=== PATIENT | male | born 1940 | race Caucasian/White ===

== ENCOUNTER → 2016-07-29 | Outpatient (REF) | payer MEDICARE, OTHER ==
[~2016-07-29] MED LIST: ADV250INH INH; ASPI325T PO; ASPI81TA85 PO; BENA10TA2 PO; CALCTAB43 PO; CETI10TA PO; FINA5TAB2 PO; FLOM5CAP PO; FURO20TA2 PO; LEVO125T3 PO; NASA1SPR; PRAV20TA2 PO; PROA1AER INH; TIOT18INH INH; VITA1CAP25 PO; VITA500T88 PO; VITMTA PO
== END ==
LOC: M SFHCPLAZ 08:22
PROVIDERS: ATTEND Family Medicine
DX: E03.9 Hypothyroidism, unspecified (principal); Z86.39 Personal history of other endocrine, nutritional and metabolic disease; I10 Essential (primary) hypertension; J44.9 Chronic obstructive pulmonary disease, unspecified; Z79.899 Other long term (current) drug therapy; Z79.82 Long term (current) use of aspirin; Z79.51 Long term (current) use of inhaled steroids; I25.10 Atherosclerotic heart disease of native coronary artery without angina pectoris; I50.32 Chronic diastolic (congestive) heart failure; E78.00 Pure hypercholesterolemia, unspecified; E83.42 Hypomagnesemia
CPT/HCPCS: 36415; 80053; 80061; 82306; 83735; 84443; 85027; G0463

== ENCOUNTER → 2016-07-29 | Outpatient (REF) | payer MEDICARE, OTHER ==
[2016-07-29 12:03] LABS: MEAN CORPUSCULAR HEMOGLOBIN 30.9 pg (27.0-33.0); MEAN CORPUSCULAR VOLUME 93.7 fl (80.0-96.0); RED CELL DISTRIBUTION WIDTH 12.7 % (11.5-14.5); WHITE BLOOD COUNT 6.1 K/mm3 (4.0-10.0)
[2016-07-29 12:24] LABS: ALBUMIN 3.6 GM/DL (3.2-5.2); ALBUMIN/GLOBULIN RATIO 1.09 (1.00-1.93); ALKALINE PHOSPHATASE 63 U/L (45-117); ALT/SGPT 20 U/L (12-78); ANION GAP 7 MEQ/L (8-16); AST/SGOT 13 U/L (15-37); BILIRUBIN,TOTAL 0.7 MG/DL (0.2-1.0); BLOOD UREA NITROGEN 19 MG/DL (7-18); CALCIUM LEVEL 8.7 MG/DL (8.8-10.2); CARBON DIOXIDE LEVEL 26 MEQ/L (21-32); CHLORIDE LEVEL 107 MEQ/L (98-107); CHOLESTEROL LEVEL 152 MG/DL (<200); CREATININE FOR GFR 1.07 MG/DL (0.70-1.30); GLOMERULAR FILTRATION RATE > 60.0 (>42); GLUCOSE, FASTING 102 MG/DL (83-110); MAGNESIUM LEVEL 2.4 MG/DL (1.8-2.4); POTASSIUM SERUM 4.6 MEQ/L (3.5-5.1); SODIUM LEVEL 140 MEQ/L (136-145); TOTAL PROTEIN 6.9 GM/DL (6.4-8.2); TRIGLYCERIDES LEVEL 122 MG/DL (<150)
== END ==
LOC: M LABDRAWP 11:32
PROVIDERS: ATTEND Physician Assistant
DX: I25.10 Atherosclerotic heart disease of native coronary artery without angina pectoris (principal); I50.32 Chronic diastolic (congestive) heart failure; E78.00 Pure hypercholesterolemia, unspecified; E83.42 Hypomagnesemia

== ENCOUNTER 2016-08-20 04:12 | Day surgery (SDC) | payer MEDICARE, BC, OTHER ==
[~2016-08-20] VITALS: Ht 170.2 cm; Wt 84.8 kg
[2016-08-20] MEDS ORDERED: LEVO125T3 PO (04:46)
[2016-08-20] MEDS ORDERED: FINA5TAB2 PO (04:46)
[2016-08-20] MEDS ORDERED: CETI10TA PO (04:46)
[2016-08-20] MEDS ORDERED: PRAV20TA2 PO (04:46)
[2016-08-20] MEDS ORDERED: FURO20TA2 PO (04:46)
[2016-08-20] MEDS ORDERED: TIOT18INH INH (04:46)
[2016-08-20] MEDS ORDERED: FLOM5CAP PO (04:46)
[2016-08-20] MEDS ORDERED: BENA10TA2 PO (04:46)
[2016-08-20] MEDS ORDERED: ADV250INH INH (04:46)
[2016-08-20] MEDS ORDERED: ASPI81TA85 PO (04:46)
[2016-08-20] MEDS ORDERED: NS 500 ML IV ONE (06:15)
[2016-08-20] MEDS ORDERED: ONDANSETRON 4MG/2ML VIAL (J2405) IV ONE (06:15)
[2016-08-20 06:16] LABS: BASO # 0.1 K/mm3 (0.0-0.2); EOS # 0.2 K/mm3 (0.0-0.50); LARGE UNSTAINED CELL # 0.1 K/mm3 (0.0-0.4); LARGE UNSTAINED CELL % 1.8 % (0.0-4.0); LYMPH # 1.1 K/mm3 (1.5-4.5); LYMPH % 14.9 % (24.0-44.0); MEAN CORPUSCULAR HEMOGLOBIN 30.6 pg (27.0-33.0); MEAN CORPUSCULAR VOLUME 95.8 fl (80.0-96.0); MONO # 0.3 K/mm3 (0.0-0.8); MONO % 4.2 % (0.0-5.0); NEUTROPHILS # 5.7 K/mm3 (1.8-7.7); NEUTROPHILS % 75.2 % (36.0-66.0); PLATELET COUNT, AUTOMATED 202 k/mm3 (150-450); RED CELL DISTRIBUTION WIDTH 12.8 % (11.5-14.5); WHITE BLOOD COUNT 7.6 K/mm3 (4.0-10.0)
[2016-08-20] MEDS: MORPHINE 2 MG/ML 1ML SYRINGE IV PRN ×4 (06:26→17:38)
[2016-08-20 06:30] LABS: ALBUMIN 3.5 GM/DL (3.2-5.2); ALBUMIN/GLOBULIN RATIO 1.03 (1.00-1.93); ALKALINE PHOSPHATASE 67 U/L (45-117); ALT/SGPT 21 U/L (12-78); AMYLASE 67 U/L (25-115); ANION GAP 7 MEQ/L (8-16); AST/SGOT 16 U/L (15-37); BILIRUBIN,DIRECT 0.1 MG/DL (0.0-0.2); BILIRUBIN,TOTAL 0.4 MG/DL (0.2-1.0); BLOOD UREA NITROGEN 19 MG/DL (7-18); CALCIUM LEVEL 8.5 MG/DL (8.8-10.2); CARBON DIOXIDE LEVEL 27 MEQ/L (21-32); CHLORIDE LEVEL 105 MEQ/L (98-107); CREATININE FOR GFR 1.22 MG/DL (0.70-1.30); GLOMERULAR FILTRATION RATE > 60.0 (>42); GLUCOSE, FASTING 138 MG/DL (83-110); POTASSIUM SERUM 4.7 MEQ/L (3.5-5.1); SODIUM LEVEL 139 MEQ/L (136-145); TOTAL PROTEIN 6.9 GM/DL (6.4-8.2)
[2016-08-20] MEDS ORDERED: ISOVUE-370 76% 100ML VIAL (Q9967) As Ordered ONE (06:36)
--- NOTE | 2016-08-20 07:50 | REPUSA ---
CLINICAL HISTORY: Abdominal pain. TECHNIQUE: Multiple axial, sagittal and coronal CT images were obtained through the abdomen and pelvi s after administration of oral and intravenous contrast material. COMMENTS: Significant food residue in the stomach. The liver is of uniform attenuation without mass or defect. There is no intra or extrahepatic biliary ductal dilatation. The spleen is normal. The gallbladder contains a gallstone impacted at its neck. Diffuse thickening and enhancement of the gallbladder with pericholecystic fat stranding. The pancrea s is of normal contour and attenuation characteristics. There is no evidence of adrenal mass. Both kidneys demonstrate prompt and equal nephrograms. The kidneys are normal in size, shape and conf iguration. There is no evidence of renal or ureteral mass. No renal or ureteral calculi are identifie d. There is no hydroureter or hydronephrosis. No evidence for appendicitis. There is no bowel wall thickening. No evidence for small or large bhaskar l obstruction. There is no evidence of abdominal ascites or lymphadenopathy. There is no evidence of intrinsic or extrinsic bladder mass. Diffusely thickened bladder. There is no pelvic ascites or lymphadenopathy. Moderate prostatomegaly. Small sliding hernia. Ectatic abdominal aorta. Images of the lung bases show no evidence of pleural or parenchymal mass. There are no pleural effusi ons. The bony structures are free of lytic or blastic lesions. Multilevel degenerative changes are seen in volving the thoracolumbar spine. Scattered calcifications are seen involving the aorta and major bran ches compatible with atherosclerosis. IMPRESSION: Acute calculus cholecystitis. No drainable abscess formation. Food residue in the stomach. Probably gastroparesis. Ectatic aorta. No associated aneurysm or dissection. Atherosclerosis. Uncomplicated clonic diverticulosis. Multifocal mild thickening of the sigmoid. Probably secondary to underdistention/spasm. Thank you for your kind referral of this patient.
--- NOTE | 2016-08-20 09:54 | REP ---
Preoperative evaluation. COMPARISON: 07/09/2014 FINDINGS: The superior mediastinal structures are midline. The cardiac silhouette is unremarkable in size, shape, and position. The diaphragmatic surfaces of the lungs are regular, and the costophrenic angles are clear. The pulmonary jarrell are clear. The imaged osseous structures are intact. IMPRESSION: There is no acute cardiopulmonary disease. No significant change. Signed by Giancarlo Joaquin DO 08/20/2016 10:20 A
[2016-08-20] MEDS ORDERED: ONDANSETRON 4MG/2ML VIAL (J2405) IV PRN ×2 (11:30→23:00)
[2016-08-20] MEDS ORDERED: VITA1CAP25 PO (11:48)
[2016-08-20] MEDS ORDERED: ASPI325T PO (11:48)
[2016-08-20] MEDS ORDERED: VITA500T88 PO (11:51)
[2016-08-20] MEDS ORDERED: NASA1SPR (11:51)
[2016-08-20] MEDS ORDERED: PROA1AER INH (11:51)
[2016-08-20] MEDS ORDERED: VITMTA PO (11:52)
[2016-08-20] MEDS ORDERED: CALCTAB43 PO (11:52)
[2016-08-20 12:21] LABS: INR 0.99
[2016-08-20] MEDS ORDERED: AMPICILLIN SOD/SULBACTAM SOD 3 GM in D5W MINI-BAG PLUS 100 ML IV SCH (13:00)
[2016-08-20] MEDS ORDERED: MORPHINE 2 MG/ML 1ML SYRINGE As Ordered ONE (14:19)
[2016-08-20 14:50] VITALS: BP 122/76
[2016-08-20] MEDS: LR 1,000 ML IV SCH (15:21)
[2016-08-20] MEDS ORDERED: NITROGLYCERIN 0.4 MG SUBL TABLET SL PRN (17:00)
[2016-08-20] MEDS: AMPICILLIN SOD/SULBACTAM SOD 3 GM in D5W MINI-BAG PLUS 100 ML IV SCH (17:39)
--- NOTE | 2016-08-20 17:40 | CR ---
DATE OF CONSULTATION: 08/20/2016 REFERRING PHYSICIAN: Dr. Adam Martinez REASON FOR CONSULTATION: 1. Abnormal troponin I. 2. Preoperative cardiac clearance prior to cholecystectomy. HISTORY OF PRESENT ILLNESS: Mr. Mauro Squires is a pleasant 76-year-old man with known coronary heart disease. He had an inferior wall myocardial infarct January 1998, for which he was treated with tPA. He subsequently underwent placement of four stents to the right coronary artery 02/09/1998. 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 He also has hypercholesterolemia. Treadmill stress SPECT myocardial perfusion imaging study April 2016 showed fair exercise tolerance with the patient completing 6 minutes, 30 seconds of the standard Ar protocol, stopping because of shortness of breath and leg fatigue. ECG was inconclusive due to baseline repolarization abnormalities. Stress myocardial perfusion was normal. Left ventricular (LV) regional wall motion and LV systolic function were normal. Echocardiogram Doppler 02/09/2015 reported normal LV size and wall thickness, normal LV systolic and diastolic function, and normal left atrial size. Presence of moderate aortic valve sclerosis without aortic stenosis. Trace aortic regurgitation. Mild mitral annular calcification with trace mitral regurgitation. Holter monitor 01/25/2016 reported predominantly sinus rhythm with sinus arrhythmia, heart rate 43-122 beats per minute (BPM) with an average heart rate of 75 BPM. Occasional premature atrial contractions (PACs) and occasional premature ventricular contractions (PVCs). Patient presented to hospital earlier today after awakening last night with severe pain over the upper abdomen, but most concentrated over the right upper quadrant. The pain did not change with light physical activity. There has been no pain, pressure, tightness, squeezing, or heaviness involving the chest, neck, jaw, or upper extremities with or without exertion. He experiences exertional dyspnea that has been stable with above ordinary physical activity, such as playing a light sport activity with grandchildren. No leg or ankle swelling. No presyncope or syncope. No palpitations. No embolic events. No intermittent claudication. ADVERSE DRUG REACTIONS: Intolerant of LIPITOR (myalgia). Intolerant of CRESTOR (myalgias). HOME MEDICATIONS: - ProAir HFA two puffs every 4 hours as needed - vitamin C 500 mg daily - aspirin 325 mg daily - benazepril 10 mg daily - calcium with vitamin D one daily - Zyrtec 10 mg at bedtime - vitamin D3 at 50,000 once a week on Fridays - finasteride 5 mg daily - furosemide 20 mg once daily - Synthroid 125 mcg daily - multivitamin one daily - Nasacort one spray each nostril at bedtime - pravastatin 20 mg at bedtime - Advair Diskus one puff twice a day - tamsulosin 0.4 mg daily - Spiriva one inhalation daily CURRENT MEDICATIONS IN HOSPITAL: - ampicillin 3 grams intravenous (IV) every 6 hours - Ringer's lactate 75 mL per hour IV - morphine 2 mg IV every 2 hours as needed - Zofran 4 mg IV every 6 hours as needed OTHER PAST MEDICAL AND SURGICAL HISTORY: 1. COPD. 2. Reactive airways disease. 3. Hypothyroidism. 4. Arthritis. 5. Glaucoma. 6. Cataracts. 7. Lupus. 8. Bilateral carpal tunnel. 9. Seasonal allergic rhinitis. 10. Benign prostatic hypertrophy. FAMILY HISTORY: Father of heart attack at age 58. Mother at age 71 from brain aneurysm. One brother with heart attack at age 60. SOCIAL HISTORY: Previous smoker. Quit in 1997. Prior to that had smoked two packs per day for 35 years. . Rare intake of alcohol. REVIEW OF SYSTEMS: Glaucoma, abdominal pain as described above, shortness of breath as described above, asthma, COPD, seasonal allergic rhinitis, arthritis, abdominal pain as above. No anxiety, panic attacks, or depression. All other 10-point review of systems negative. PHYSICAL EXAMINATION: A pleasant elderly man who appears his chronologic age, who is not in any respiratory or psychologic distress. Appears overweight. Height 67 inches, weight 84.8 kg, body mass index (BMI) 29.3. Temperature 97.2, pulse 71 (regular), respiratory rate 18, blood pressure (BP) 122/76, oxygen saturation 91% on room air. ECG 08/20/2016 at 6:15 a.m. shows sinus rhythm, 66 BPM, within normal limits. ECG 08/20/2016 at 3:35 p.m. shows sinus rhythm, 65 BPM, incomplete right bundle branch block (BBB). No pathologic Q waves. No ischemic repolarization abnormalities. Posterior-anterior (PA)/lateral chest x-ray 08/20/2016: Reported no acute cardiopulmonary disease. No significant change. Cardiac silhouette unremarkable in size, shape, and position. Lung jarrell clear. CT abdomen/pelvic with IV contrast reported acute calculous cholecystitis. Probable gastroparesis. Ectatic aorta. No aortic aneurysm or dissection. Atherosclerosis. Uncomplicated chronic diverticulosis. Multifocal mild thickening of the sigmoid. Laboratory work 08/20/2016 showed WBC 7.6, hemoglobin 14.2, hematocrit 44.6, platelets 202. PT/INR 0.99, PTT 28.6. BNP 22.3. Sodium 139, potassium 4.7, chloride 105, CO2 of 27, BUN 19, creatinine 1.22, estimated GFR greater than 60, glucose 138, calcium 8.5. Total bilirubin normal, direct bilirubin normal, AST normal, ALT normal, alkaline phosphatase normal. First CPK 211, repeat CPK 165. First CPK-MB 2.8, second CPK-MB 2.5. First troponin I of 0.17, repeat troponin I of 0.15. Protein 6.7, albumin 3.5. Amylase normal, lipase normal. ASSESSMENT AND RECOMMENDATIONS: 1. Coronary artery disease (CAD) without angina. History of inferior wall myocardial infarct January 1998, for which he received tPA. Status post coronary stenting times four to the right coronary artery 02/09/1998. Patient is angina free. Treadmill cardiac nuclear stress test April 2016 showed normal exercise stress myocardial perfusion and normal left ventricular (LV) systolic function and LV wall motion. ECG does not show any pathologic Q waves or ischemic repolarization abnormalities. It is difficult to be certain why this patient has a very slight indeterminate troponin I value; however, he is not in heart failure, and in my opinion he is not having any acute myocardial infarction. Recommend restarting aspirin following cholecystectomy. I will add nitroglycerine sublingual as needed. Continue pravastatin. Restart benazepril postoperatively. 2. Abnormal troponin I. I do not think this patient is having an acute myocardial infarction. He is not in heart failure. I do not have a good explanation for the slight indeterminate rate troponin I. I would not pursue cardiac catheterization or cancel his cholecystectomy surgery on the basis of these troponin I values. 3. Preoperative cardiac clearance for cholecystectomy. Cholecystectomy is generally consider an intermediate risk procedure from a cardiac point viewpoint, defined as 1-5% risk of nonfatal acute myocardial infarction or cardiac mortality. [place] [employer] [employer] clinical predictors are as follows. Major predictors: None. Intermittent clinical predictors: Old myocardial infarct. Minor clinical predictors: None. Intermittent clinical predictor: Compensated heart failure. At this point, I consider this patient cleared from the cardiac viewpoint to be able to proceed to the operating room for cholecystectomy. I have explained this by telephone to Dr. Adam Martinez. 4. Chronic diastolic heart failure. Compensated on examination. Normal brain natriuretic peptide (BNP). Restart furosemide postoperatively. Restart angiotensin-converting enzyme (MARIA ALEJANDRA) inhibitor postoperatively. 5. Hypertensive heart disease with congestive heart failure (CHF). As per diastolic heart failure category above. Blood pressure presently controlled. 6. Systemic hypertension. Blood pressure presently controlled. Recommend restarting furosemide and benazepril postoperatively . 7. 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 As per CAD category above. 8. Status post coronary stents to the right coronary artery. As per CAD category above. 9. Hypercholesterolemia. Recommend a Dietary Approaches to Stop Hypertension (DASH) diet when patient is able to get back to eating postoperatively. Recommend postoperatively when patient is able to eat again, to restart pravastatin. Thank you for referring Mr. Mauro Squires.
[2016-08-20] MEDS ORDERED: BUPIVACAINE HCL 0.25% 30 ML VIAL As Ordered ONE (20:56)
[2016-08-20] MEDS: ADVAIR DISKUS 250/50 INH PWD INH SCH (21:00)
[2016-08-20] MEDS ORDERED: fentaNYL 250 MCG/5 ML INJECTION (J3010) As Ordered ONE (21:12)
[2016-08-20] MEDS ORDERED: ROCURONIUM BROMIDE 50 MG/5 ML VIAL As Ordered ONE (21:12)
[2016-08-20] MEDS ORDERED: PROPOFOL 200 MG/20 ML VIAL As Ordered ONE (21:12)
[2016-08-20] MEDS ORDERED: LIDOCAINE 2% INJ 100 MG/5 ML SDV (FOR ANES.) As Ordered ONE (21:12)
[2016-08-20] MEDS ORDERED: SUCCINYLCHOLINE 100 MG/5 ML SYRINGE (J0330) As Ordered ONE (21:12)
[2016-08-20] MEDS ORDERED: MIDAZOLAM INJ 2 MG/2 ML VIAL (J2250) As Ordered ONE (21:12)
[2016-08-20] MEDS ORDERED: NEOSTIGMINE 1MG/ML 5 ML SYRINGE (J2710) As Ordered ONE (21:32)
[2016-08-20] MEDS ORDERED: ONDANSETRON 4MG/2ML VIAL (J2405) As Ordered ONE (21:32)
[2016-08-20] MEDS ORDERED: GLYCOPYRROLATE INJ 0.2 MG/ML 2 ML VIAL As Ordered ONE (21:32)
[2016-08-20] MEDS ORDERED: LR 1,000 ML IV SCH (23:00)
[2016-08-20] MEDS ORDERED: PERCOCET 5MG/325MG TAB PO PRN (23:00)
[2016-08-20] MEDS ORDERED: fentaNYL 100 MCG/2 ML INJECTION (J3010) IV PRN (23:00)
[2016-08-20 23:15] VITALS: BP 147/70
[2016-08-20] MEDS ORDERED: ACETAMINOPHEN TAB 650MG DOSE (2X325MG) PO PRN (23:15)
[2016-08-20] MEDS ORDERED: NORCO, ANEXSIA 5/325MG TABLET (HYDROcodone/ACETAMINOPHEN) PO PRN (23:15)
[2016-08-20 23:45] VITALS: BP 137/65
[2016-08-21] VITALS (7 sets, daily range): BP systolic 118–137; BP diastolic 56–68
[2016-08-21] MEDS: AMPICILLIN SOD/SULBACTAM SOD 3 GM in D5W MINI-BAG PLUS 100 ML IV SCH ×4 (00:03→16:53)
[2016-08-21] MEDS: LR 1,000 ML IV SCH (00:38)
[2016-08-21] MEDS: MORPHINE 2 MG/ML 1ML SYRINGE IV PRN (05:48)
[2016-08-21] MEDS ORDERED: LEVOTHYROXINE 0.125 MG TAB (125 MCG) PO SCH (06:00)
[2016-08-21] MEDS ORDERED: TIOTROPIUM INHALER/CAPSULE (SPIRIVA) INH SCH (08:00)
[2016-08-21] MEDS: ADVAIR DISKUS 250/50 INH PWD INH SCH (08:19)
[2016-08-21] MEDS ORDERED: TAMSULOSIN 0.4 MG CAP PO SCH (09:00)
[2016-08-21] MEDS ORDERED: FINASTERIDE 5 MG TAB PO SCH (09:00)
[2016-08-21] MEDS ORDERED: FUROSEMIDE 20 MG TAB PO SCH (09:00)
[2016-08-21] MEDS ORDERED: BENAZEPRIL 5 MG TAB PO SCH (09:00)
--- NOTE | 2016-08-21 09:21 | ECGEPIP ---
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
--- NOTE | 2016-08-21 15:57 | ECGEPIP ---
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
--- NOTE | 2016-08-21 16:00 | ECGEPIP ---
Stationary ECG Study 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
--- NOTE | 2016-08-21 21:31 | HPE ---
DATE OF ADMISSION: 08/20/2016 ADMITTING DIAGNOSIS: Acute cholecystitis. HISTORY OF PRESENT ILLNESS: The patient is a very pleasant 76-year-old man who presented to the emergency department at approximately 4 o'clock in the morning of August 20. He reports that he had retired for the evening at approximately 10:30 on the . He was awakened at 12:30 with severe epigastric pain. He developed some nausea. He tried drinking a cup of hot coffee, thinking this might settle his stomach, but it did not. He developed some dry heaves and had persistent severe epigastric pain and pain across his upper abdomen. He tolerated this for several hours at home and then contacted family, who brought him to the emergency department at about 4 o'clock. In the emergency department he was evaluated with some blood work. He had a chest x-ray and then had a CT scan of the abdomen and pelvis. The CT scan was interpreted by radiology as showing gallbladder wall thickening with pericholecystic inflammation and a stone in the neck of the gallbladder. I was consulted. The patient now approximately 10 hours out from onset of his pain has persistent pain and is tender in the right subcostal area, consistent with acute cholecystitis. The patient is now being placed on same-day surgery status for a laparoscopic cholecystectomy for management of his acute cholecystitis. MEDICATIONS: The patient's medications include: - Advair Diskus 250/50 mcg dosing, one puff inhaled twice daily - aspirin 325 mg by mouth daily - benazepril 10 mg by mouth daily - pravastatin 20 mg by mouth daily - cetirizine 10 mg by mouth daily - finasteride 5 mg by mouth daily - tamsulosin 0.4 mg by mouth daily - levothyroxine 125 mcg by mouth daily - furosemide 20 mg by mouth daily - Spiriva inhaler one inhalation daily. ALLERGIES: None known. SURGICAL HISTORY: Significant for a left inguinal hernia repair in the distant past. He has had a left total knee arthroplasty. The patient had coronary stents placed in 1997. He had an epididymectomy for some form of epididymitis. He has undergone colonoscopy, most recently 2 years ago. MEDICAL HISTORY: Significant for: 1. An myocardial infarction (NH) back in about 1997. He apparently was observed for a day or two in the hospital, which revealed some changes which led to a transfer to [place] for his coronary arteriography and stenting. The patient reports his most recent followup stress test was in the fall of 2016, and he did well. He denies any history of arrhythmia or significant heart failure. 2. He has a history of some chronic obstructive pulmonary disease associated with a prior history of smoking. He stopped smoking at the time of his cardiac event back in 1997. 3. He has a history of benign prostatic hyperplasia. 4. His cholesterol has been elevated in the past. 5. He is on some Synthroid for hypothyroidism. SOCIAL HISTORY: The patient is a . He remains quite active physically. He had planned to fly to [place] on August 21 to watch his granddaughter play softball during spring. He has an attentive [id number] with him today and has other family members who are normally available to assist. FAMILY HISTORY: Not contributory. REVIEW OF SYSTEMS: The patient denies any history of severe headaches, stroke, or seizure. He has no chest pain or palpitations. He denies any significant shortness of breath, wheezing, or cough. He denies any history of obstructive sleep apnea. He has not had any pains similar to what he is having today previously. He denies any history of jaundice, hepatitis, or pancreatitis. He has had no melena or hematochezia. He has known diverticulosis but has not had any recent problems and reports that his colonoscopy 2 years ago was fine. He denies any history of deep vein thrombosis (DVT) or pulmonary embolus. PHYSICAL EXAMINATION: Reveals a pleasant, somewhat obese older man lying quietly on the emergency room (ER) stretcher. He is alert, oriented, and cooperative. Sclerae are anicteric. The skin is warm and dry. Mucous membranes are moist. His most recent vital signs show a temperature of 97.8 degrees with a pulse of 69 and a blood pressure of 132/64 with an oxygen saturation of 92. His neck is supple. There is no mass. He has no bruit. Heart exam shows a regular rate and rhythm. The lungs are clear to auscultation bilaterally, though the breath sounds may be somewhat distant. The abdomen is mildly obese. He has bowel sounds present. He has an old scar low in the left lower quadrant. There is some mild tenderness to percussion in the epigastrium and right upper quadrant. On palpation he has moderate direct tenderness in the right subcostal area at about the midclavicular line. The abdomen is otherwise soft and without appreciable mass. Extremities show no peripheral edema, and he has palpable radial and dorsalis pedis pulses. His laboratory studies include a CBC showing a white count of 7.6 with a hemoglobin of 14, hematocrit of 45 and a platelet count of 202,000. Differential count shows 75% neutrophils with 15% lymphocytes. A chemistry profile shows a sodium of 139, potassium 4.7, chloride 105, CO2 of 27, BUN of 19, creatinine 1.22, and glucose of 138. Liver function tests are normal. His total bilirubin is 0.4. Total protein is 6.9 with an albumin of 3.5. Amylase is only 67, and his lipase is 98. A urinalysis showed a specific gravity of 1.040 with a pH of 6.0, and there was only 1 white cell and 3 red cells noted per high-power field but no bacteria seen. He had a cardiac injury profile showing a CK of 211, CK-MB of only 2.8. A troponin was 0.17, which is above the normal lower reference range. The CT scan images were reviewed. He has some significant degenerative changes of the spine. He has some significant atherosclerotic changes identified in the great vessels. There does appear to be some thickening in the wall of the gallbladder fairly diffusely. There does appear to be a small calcific density in the area of the gallbladder neck or proximal cystic duct. There is no free air. Chest x-ray showed no acute abnormality. The lungs do appear to be somewhat hyperinflated. IMPRESSION: 1. Acute cholecystitis. 2. Atherosclerotic coronary artery disease status post stenting with no recent symptoms and a good stress test outcome in the fall of 2016. 3. Chronic obstructive pulmonary disease. 4. Hypothyroidism. 5. Hyperlipidemia. 6. Benign prostatic hyperplasia. PLAN: I discussed with the patient the treatment of his acute cholecystitis. I have recommended that we administer antibiotics and proceed with a laparoscopic cholecystectomy today. I see no benefit in delaying the treatment. He had an opportunity to ask questions. I counseled him regarding the nature of a laparoscopic cholecystectomy and to include the risks and possible benefits. Risks include, but are not limited to, bleeding, infection, scarring, adverse drug reaction, need for further surgery, injury of internal organ, bile leak, and hernia. The patient desires to proceed as I have outlined this. I will keep him nothing by mouth for now and on some maintenance intravenous (IV) fluid. He will receive a dose of Unisom 3 grams IV, and we will proceed with surgery whenever the operating room can provide support. COURTD
--- NOTE | 2016-08-22 13:09 | RO ---
DATE OF PROCEDURE: 08/20/2016 PREOPERATIVE DIAGNOSIS: Acute cholecystitis. POSTOPERATIVE DIAGNOSIS: Acute cholecystitis. PROCEDURE PERFORMED: Laparoscopic cholecystectomy. SURGEON: Dr. Martinez WINE PASTEURIZER: ANESTHESIA: General. INDICATIONS FOR PROCEDURE: The patient is a 76-year-old man who presented to the emergency department with severe epigastric pain. He underwent evaluation with a CT scan that showed a thickened gallbladder wall with a suggestion of a stone in the gallbladder neck or proximal cystic duct. His clinical picture was consistent with acute cholecystitis and he is now for a laparoscopic cholecystectomy. OPERATIVE PROCEDURE: The patient was placed under general endotracheal anesthesia. The patient's abdomen was prepped and draped in a sterile fashion. 0.25% Marcaine was infiltrated at the trocar sites. A short supraumbilical midline incision was made. This was deepened through the fascia and peritoneum sharply. A Luly cannula was inserted and the abdomen was insufflated with carbon dioxide gas. The patient was tilted to a slight reverse Trendelenburg position. The laparoscope was inserted. There was abundant omental fat extending up over the right side of the liver. Two 5 mm trocars were placed in the right upper quadrant. Because of some adhesions in the left upper quadrant just to the left of his falciform ligament, which bound some omentum into this area, I elected to put the third 5 mm trocar just to the right of the falciform ligament in the epigastrium. With graspers, the omentum was pulled down off of the right lobe of the liver. The gallbladder was exposed. The patient was rotated slightly to the left to enhance exposure. The gallbladder was found to be markedly edematous. The gallbladder was grasped, but was distended making manipulation difficult so the gallbladder was aspirated of some dark bile. The gallbladder was elevated. Dissection was begun in the region of the gallbladder neck. The peritoneum was opened with the hook cautery and dissection proceeded through the markedly edematous tissue. The cystic duct was dissected free and well exposed. I attempted to clip this with the Ligamax but the wall was thickened to a point where the clips would not extend across the full width of the cystic duct. Therefore, these clips were removed. Further dissection identified the cholecystic artery and this was doubly clipped with hemoclips and divided. The cystic duct was clipped near the gallbladder neck and the cystic duct was then divided with scissors. The stump of the cystic duct was then occluded with a #0 Vicryl Endoloop. A small amount of bile spillage was irrigated until clear. Dissection then proceeded to remove the gallbladder from the gallbladder bed using the hook cautery. Because of the marked edema, the dissection was somewhat slowed. Gallbladder was perforated in the course of dissection and there was some bile spillage into the subhepatic space. The gallbladder was placed in an Endopouch. The right upper quadrant was then copiously irrigated with saline. A few small bleeding points along the gallbladder bed were controlled with cautery. Final inspection revealed no evidence of bleeding or bile leak. The patient was returned to a flat position. The abdomen was deflated and the trocars were all removed. The gallbladder was recovered through the Luly site and sent for permanent pathology. The fascia was closed with interrupted simple sutures of #2-0 Vicryl. The skin incisions were all closed with buried #5-0 Vicryl and Steri-Strips. The patient tolerated the procedure well without apparent complication. He was awakened in the operating room, extubated and moved to the recovery room in stable condition. JOYCELYN
== END 2016-08-21 19:40 | disposition home or self-care (01) ==
LOC: M ED 05:17 → M SDC 11:18 → M MS5PR 14:39 → M SDC 08-21 19:40
PROVIDERS: ATTEND Surgery
DX: K81.0 Acute cholecystitis (principal); I10 Essential (primary) hypertension; I25.10 Atherosclerotic heart disease of native coronary artery without angina pectoris; I50.32 Chronic diastolic (congestive) heart failure; R06.09 Other forms of dyspnea; J44.9 Chronic obstructive pulmonary disease, unspecified; R06.83 Snoring; E03.9 Hypothyroidism, unspecified; E78.5 Hyperlipidemia, unspecified; N40.0 Benign prostatic hyperplasia without lower urinary tract symptoms; K57.30 Diverticulosis of large intestine without perforation or abscess without bleeding; I25.2 Old myocardial infarction; Z79.899 Other long term (current) drug therapy; Z79.82 Long term (current) use of aspirin; Z96.652 Presence of left artificial knee joint
CPT/HCPCS: 36415; 47562; 71020; 74177; 80048; 80076; 81001; 82150; 82550; 82553; 83690; 83880; 84484; 85025; 85610; 85730; 88304; 93005; 93041; 94664; 96374; 96375; 96376; 99285; J0330; J2250; J2405; J2710; J3010; Q9967

== ENCOUNTER → 2016-11-04 | Outpatient (REF) | payer MEDICARE, OTHER ==
[~2016-11-04] MED LIST changes: -BENA10TA2 PO; +BENA10TA6 PO; -CALCTAB43 PO; +CALCTAB74 PO; -LEVO125T3 PO; +LEVO125T4 PO; -PROA1AER INH; +PROAAER10 INH
== END ==
LOC: M SFHCPLAZ 08:59
PROVIDERS: ATTEND Family Medicine
DX: E55.9 Vitamin D deficiency, unspecified (principal)

== ENCOUNTER → 2017-01-20 | Outpatient (REF) | payer MEDICARE, OTHER ==
[2017-01-20 13:03] LABS: ALBUMIN 3.5 GM/DL (3.2-5.2); ALBUMIN/GLOBULIN RATIO 0.97 (1.00-1.93); ALKALINE PHOSPHATASE 69 U/L (45-117); ALT/SGPT 20 U/L (12-78); ANION GAP 8 MEQ/L (8-16); AST/SGOT 14 U/L (15-37); BILIRUBIN,TOTAL 0.6 MG/DL (0.2-1.0); BLOOD UREA NITROGEN 22 MG/DL (7-18); CARBON DIOXIDE LEVEL 29 MEQ/L (21-32); CHLORIDE LEVEL 107 MEQ/L (98-107); CREATININE FOR GFR 1.03 MG/DL (0.70-1.30); GLOMERULAR FILTRATION RATE > 60.0 (>42); GLUCOSE, FASTING 100 MG/DL (83-110); POTASSIUM SERUM 4.7 MEQ/L (3.5-5.1); SODIUM LEVEL 144 MEQ/L (136-145); TOTAL PROTEIN 7.1 GM/DL (6.4-8.2)
== END ==
LOC: M LABDRAW1 11:40
PROVIDERS: ATTEND Physician Assistant
DX: I25.10 Atherosclerotic heart disease of native coronary artery without angina pectoris (principal); I50.32 Chronic diastolic (congestive) heart failure; E78.00 Pure hypercholesterolemia, unspecified

== ENCOUNTER 2017-04-17 22:42 | Emergency (ER) | payer MEDICARE, OTHER ==
[~2017-04-17] VITALS: Ht 170.2 cm; Wt 83.6 kg
[2017-04-17 22:42] VITALS: BP 123/79
[2017-04-18] MEDS ORDERED: MORPHINE 10 MG/ML 1ML VIAL IM ONE (01:00)
[2017-04-18] MEDS ORDERED: predniSONE 20 MG TAB PO ONE (01:00)
[2017-04-18] MEDS ORDERED: diazePAM 2 MG TAB PO ONE (01:00)
[2017-04-18] MEDS ORDERED: PRED20TA PO (01:03)
[2017-04-18] MEDS ORDERED: NORCOTAB PO (01:03)
[2017-04-18] MEDS ORDERED: VALI2TAB PO (01:03)
[2017-04-18] MEDS ORDERED: NORCO 5/325MG TABLET (BULK FOR ED) PO ONE (01:15)
== END 2017-04-18 01:30 | disposition home or self-care (01) ==
LOC: M ED 22:42
DX: M54.41 Lumbago with sciatica, right side (principal); I50.9 Heart failure, unspecified; Z79.899 Other long term (current) drug therapy; Z79.82 Long term (current) use of aspirin; Z79.51 Long term (current) use of inhaled steroids

== ENCOUNTER → 2017-04-28 | Outpatient (CLI) | payer MEDICARE, BC, OTHER ==
[~2017-04-28] MED LIST changes: +NORCOTAB PO; +PRED20TA PO; +VALI2TAB PO
--- NOTE | 2017-04-28 09:28 | REP ---
ULTRASOUND ABDOMINAL AORTA: Real-time sonographic evaluation of the abdominal aorta are performed. There is no sonographic evidence of abdominal aortic aneurysm. Maximum AP diameter of the abdominal aorta at the level of the diaphragms is 2.8 cm, at the level of the renal artery is 2.0 cm, mid aspect 2.3 cm and distally 2.4 cm. The common iliac arteries are normal caliber, right measuring 1.1 cm and left 1.2 cm. Mild atherosclerotic plaquing is seen. IMPRESSION: Mild ectasia distal abdominal aorta without aneurysm. Signed by Hasmukh Dejesus MD 04/28/2017 11:52 A
== END ==
LOC: M RAD 08:13
PROVIDERS: ATTEND Family Medicine
DX: R94.31 Abnormal electrocardiogram [ECG] [EKG] (principal)

== ENCOUNTER → 2017-07-17 | Outpatient (REF) | payer MEDICARE, BC, OTHER ==
[2017-07-17 12:13] LABS: HEMATOCRIT 41.8 % (42.0-52.0); HEMOGLOBIN 13.7 g/dl (14.0-18.0); MEAN CORPUSCULAR HEMOGLOBIN 31.3 pg (27.0-33.0); MEAN CORPUSCULAR HGB CONC 32.8 g/dl (32.0-36.5); MEAN CORPUSCULAR VOLUME 95.4 fl (80.0-96.0); PLATELET COUNT, AUTOMATED 214 10^3/uL (150-450); RED BLOOD COUNT 4.38 10^6/uL (4.30-6.10); RED CELL DISTRIBUTION WIDTH 13.1 % (11.5-14.5)
[2017-07-17 12:48] LABS: ALBUMIN 3.4 GM/DL (3.2-5.2); ALKALINE PHOSPHATASE 59 U/L (45-117); ALT/SGPT 16 U/L (12-78); ANION GAP 5 MEQ/L (8-16); AST/SGOT 12 U/L (7-37); BILIRUBIN,TOTAL 0.7 MG/DL (0.2-1.0); BLOOD UREA NITROGEN 21 MG/DL (7-18); CALCIUM LEVEL 8.7 MG/DL (8.8-10.2); CARBON DIOXIDE LEVEL 30 MEQ/L (21-32); CHLORIDE LEVEL 108 MEQ/L (98-107); CHOLESTEROL LEVEL 132 MG/DL (<200); CHOLESTEROL RISK RATIO 2.869 (<5); CREATININE FOR GFR 1.01 MG/DL (0.70-1.30); GLOMERULAR FILTRATION RATE > 60.0 (>42); GLUCOSE, FASTING 105 MG/DL (70-100); HDL CHOLESTEROL 46 MG/DL (>40); NON-HDL-C 86 MG/DL; POTASSIUM SERUM 4.7 MEQ/L (3.5-5.1); SODIUM LEVEL 143 MEQ/L (136-145); TOTAL PROTEIN 6.5 GM/DL (6.4-8.2); TRIGLYCERIDES LEVEL 105 MG/DL (<150)
== END ==
LOC: M LABDRAW1 08:31
DX: I25.10 Atherosclerotic heart disease of native coronary artery without angina pectoris (principal); I50.32 Chronic diastolic (congestive) heart failure; E78.00 Pure hypercholesterolemia, unspecified

== ENCOUNTER → 2017-07-17 | Outpatient (REF) | payer MEDICARE, BC, OTHER ==
[2017-07-17 13:02] LABS: TOTAL 25(OH) VITAMIN D 27.5 NG/ML (30.0-100.0)
[2017-07-17 13:08] LABS: ANION GAP 6 MEQ/L (8-16); BLOOD UREA NITROGEN 22 MG/DL (7-18); CALCIUM LEVEL 8.9 MG/DL (8.8-10.2); CARBON DIOXIDE LEVEL 30 MEQ/L (21-32); CHLORIDE LEVEL 108 MEQ/L (98-107); CHOLESTEROL LEVEL 146 MG/DL (<200); CHOLESTEROL RISK RATIO 2.862 (<5); CREATININE FOR GFR 1.05 MG/DL (0.70-1.30); GLOMERULAR FILTRATION RATE > 60.0 (>42); GLUCOSE, FASTING 102 MG/DL (70-100); HDL CHOLESTEROL 51 MG/DL (>40); LDL CHOLESTEROL 73.2 MG/DL (<100); NON-HDL-C 95 MG/DL; POTASSIUM SERUM 4.7 MEQ/L (3.5-5.1); PSA SCREENING 0.22 NG/ML (< 4.0); SODIUM LEVEL 144 MEQ/L (136-145); TRIGLYCERIDES LEVEL 109 MG/DL (<150)
== END ==
LOC: M LABDRAW1 08:29
DX: I25.10 Atherosclerotic heart disease of native coronary artery without angina pectoris (principal); Z12.5 Encounter for screening for malignant neoplasm of prostate; E55.9 Vitamin D deficiency, unspecified; I50.32 Chronic diastolic (congestive) heart failure; E78.00 Pure hypercholesterolemia, unspecified
CPT/HCPCS: 80053

== ENCOUNTER → 2017-07-26 | Outpatient (REF) | payer MEDICARE, OTHER ==
[2017-07-26 16:25] LABS: MAGNESIUM LEVEL 2.2 MG/DL (1.8-2.4)
== END ==
LOC: M LABDRAW1 14:27
DX: R00.2 Palpitations (principal)
CPT/HCPCS: 83735

== ENCOUNTER → 2018-01-19 | Outpatient (REF) | payer MEDICARE, OTHER ==
[2018-01-19 15:54] LABS: ALBUMIN 3.5 GM/DL (3.2-5.2); ANION GAP 8 MEQ/L (8-16); BLOOD UREA NITROGEN 21 MG/DL (7-18); CALCIUM LEVEL 8.4 MG/DL (8.8-10.2); CARBON DIOXIDE LEVEL 25 MEQ/L (21-32); CHLORIDE LEVEL 107 MEQ/L (98-107); CREATININE FOR GFR 1.19 MG/DL (0.70-1.30); GLOMERULAR FILTRATION RATE > 60.0 (>42); GLUCOSE, FASTING 133 MG/DL (70-100); PHOSPHORUS LEVEL 2.9 MG/DL (2.5-4.9); POTASSIUM SERUM 4.2 MEQ/L (3.5-5.1); SODIUM LEVEL 140 MEQ/L (136-145)
== END ==
LOC: M LABDRAW1 11:08
DX: I50.32 Chronic diastolic (congestive) heart failure (principal)
CPT/HCPCS: 80069

== ENCOUNTER → 2018-01-26 | Outpatient (CLI) | payer MEDICARE, BC, OTHER | LOC: M RAD 10:19 | DX: R10.31 Right lower quadrant pain (principal) | CPT/HCPCS: 76705 ==

== ENCOUNTER → 2018-01-31 | Outpatient (REF) | payer MEDICARE, OTHER ==
[2018-01-31 12:17] LABS: BASO # 0.1 10^3/uL (0.0-0.2); BASO % 0.7 % (0.0-1.0); EOS # 0.3 10^3/uL (0.0-0.50); EOS % 4.8 % (0.0-3.0); HEMATOCRIT 40.3 % (42.0-52.0); HEMOGLOBIN 13.7 g/dl (13.5-17.5); IMMATURE GRANULOCYTE % 0.3 % (0-3.0); LYMPH # 2.3 10^3/uL (1.5-4.5); LYMPH % 33.2 % (24.0-44.0); MEAN CORPUSCULAR HEMOGLOBIN 31.8 pg (27.0-33.0); MEAN CORPUSCULAR VOLUME 93.5 fl (80.0-96.0); MONO # 0.6 10^3/uL (0.0-0.8); MONO % 9.3 % (0.0-5.0); NEUTROPHILS # 3.5 10^3/uL (1.8-7.7); NEUTROPHILS % 51.7 % (36.0-66.0); PLATELET COUNT, AUTOMATED 214 10^3/uL (150-450); RED BLOOD COUNT 4.31 10^6/uL (4.30-6.10); RED CELL DISTRIBUTION WIDTH 12.6 % (11.5-14.5); WHITE BLOOD COUNT 6.8 10^3/uL (4.0-10.0)
[2018-01-31 13:05] LABS: FREE T4 1.15 NG/DL (0.76-1.46)
[2018-01-31 15:38] LABS: ESTIMATED AVERAGE GLUCOSE 117 MG/DL (60-110); HEMOGLOBIN A1c 5.7 %
== END ==
LOC: M LABDRAW1 11:08
DX: E03.9 Hypothyroidism, unspecified (principal); I48.0 Paroxysmal atrial fibrillation; D64.9 Anemia, unspecified; Z12.5 Encounter for screening for malignant neoplasm of prostate
CPT/HCPCS: 84443

== ENCOUNTER → 2018-04-19 | Outpatient (CLI) | payer MEDICARE, OTHER | LOC: M WUC 08:35 | DX: J44.1 Chronic obstructive pulmonary disease with (acute) exacerbation (principal) | CPT/HCPCS: 71046 ==

== ENCOUNTER → 2018-05-03 | Outpatient (CLI) | payer MEDICARE, BC, OTHER ==
[~2018-05-03] MED LIST changes: +E-Z-GAS II EFFERVESCENT PACKET (SODIUM BICARB./CITRIC ACID/SIMETHICONE) As Ordered ONE; +E-Z-HD 98% w/w 340GM SUSP BTL As Ordered ONE; +E-Z-PAQUE 96% w/w SUSP 176GM BTL As Ordered ONE; +FLOM0.4C39 PO; -FLOM5CAP PO
--- NOTE | 2018-05-08 11:34 | REP ---
Clinical: dysphagia. Technique: Single contrast and double contrast technique using barium sulfate substrates. Findings: Organ Recovery Coordinator film of the abdomen demonstrates degenerative changes to the lumbosacral spine and pelvis/hips. Normal nonspecific bowel gas pattern noted. Organ Recovery Coordinator film of the chest demonstrates left lower lobe infiltrate which warrants followup. Normal motility through the oropharynx and hypopharynx is appreciated without obvious mass/mass effect or contour abnormality. The esophagus demonstrates irregular peristalsis and tertiary waves without evidence for ulcerations, polyps, intrinsic or extrinsic mass lesion. Total fluoroscopic time: 2.2 minutes . Impression: 1. Normal oral phase of examination. 2. Dysmotility and tertiary waves through the esophagus which may be related to the patient's dysphagia. 3. Organ Recovery Coordinator film of the chest demonstrates left lower lobe infiltrate requiring follow-up and correlation. Electronically Signed by Ignacio Mantilla MD 05/08/2018 11:25 A
== END ==
LOC: M RAD 09:36
PROVIDERS: ATTEND Physician Assistant
DX: R13.10 Dysphagia, unspecified (principal); R91.8 Other nonspecific abnormal finding of lung field

== ENCOUNTER → 2018-06-18 | Outpatient (CLI) | payer MEDICARE, BC, OTHER ==
[~2018-06-18] MED LIST changes: -E-Z-GAS II EFFERVESCENT PACKET (SODIUM BICARB./CITRIC ACID/SIMETHICONE) As Ordered ONE; -E-Z-HD 98% w/w 340GM SUSP BTL As Ordered ONE; -E-Z-PAQUE 96% w/w SUSP 176GM BTL As Ordered ONE
--- NOTE | 2018-06-18 11:56 | REP ---
PA and lateral chest: Comparison is 04/19/2018. The lung jarrell are clear. There are no focal infiltrates or effusions. No lung nodules are identified. Cardiac size is normal. The roderick, mediastinum, and skeletal structures are unremarkable. There is no interval change. Impression: Negative PA and lateral chest. No evidence of pneumonia. No interval change. Electronically Signed by Hasmukh Alonso MD 06/18/2018 11:47 A
== END ==
LOC: M RAD 09:49
PROVIDERS: ATTEND Physician Assistant
DX: J18.1 Lobar pneumonia, unspecified organism (principal)

== ENCOUNTER 2018-07-20 11:40 | Day surgery (SDC) | payer MEDICARE, BC, OTHER ==
[~2018-07-20] VITALS: Ht 170.2 cm; Wt 83.9 kg
[~2018-07-20 11:40] MED LIST changes: +NS 1,000 ML IV ONE
[2018-07-20] MEDS ORDERED: PROPOFOL 200 MG/20 ML VIAL As Ordered ONE (13:34)
[2018-07-20] MEDS ORDERED: LIDOCAINE 2% INJ 100 MG/5 ML SDV (FOR ANES.) As Ordered ONE (13:34)
--- NOTE | 2018-07-20 13:57 | ROOR ---
Patient Name: Mauro Squires Procedure Date: 07/20/2018 1:34 PM Date of : 1940 Age: 78 Room: [facility] Gender: Male Note Status: Finalized Procedure: Upper GI endoscopy Indications: Dysphagia Providers: Master BOYD MD Referring MD: Derick Calloway MD Requesting Provider: Medicines: Monitored Anesthesia Care Complications: No immediate complications. Procedure: Pre-Anesthesia Assessment: - The heart rate, respiratory rate, oxygen saturations, blood pressure, adequacy of pulmonary ventilation, and response to care were monitored throughout the procedure. The Endoscope was introduced through the mouth, and advanced to the second part of duodenum. The upper GI endoscopy was accomplished without difficulty. The patient tolerated the procedure well. Findings: Abnormal motility was noted in the middle third of the esophagus and in the lower third of the esophagus. The cricopharyngeus was normal. There is spasticity of the esophageal body. The distal esophagus/lower esophageal sphincter is spastic, but gives up passage to the endoscope. A widely patent Schatzki ring was found at the gastroesophageal junction. A TTS dilator was passed through the scope. Dilation with an 18-19-20 mm balloon dilator was performed to 18 mm. The dilation site was examined and showed complete resolution of luminal narrowing. The entire examined stomach was normal. The examined duodenum was normal. Impression: - Abnormal esophageal motility. (very spastic distal esophagus. LES spastic-gives way) - Widely patent Schatzki ring-dubious significance. Dilated. - Normal stomach. - Normal examined duodenum. - No specimens collected. Recommendation: - Observe patient's clinical course. - Continue present medications. - Consider referral for Motility study--r/o Achalasia Master Boyd MD Master BOYD MD 07/20/2018 1:56:36 PM This report has been signed electronically. Number of Addenda: 0 Note Initiated On: 07/20/2018 1:34 PM Estimated Blood Loss: Estimated blood loss: none.
[2018-07-20 14:15] VITALS: BP 150/68
== END 2018-07-20 14:22 | disposition home or self-care (01) ==
LOC: M OPP 11:40
PROVIDERS: ATTEND Internal Medicine Gastroenterology
DX: K22.4 Dyskinesia of esophagus (principal); K22.2 Esophageal obstruction; R13.10 Dysphagia, unspecified; J44.9 Chronic obstructive pulmonary disease, unspecified; Z79.82 Long term (current) use of aspirin; Z79.899 Other long term (current) drug therapy; I25.2 Old myocardial infarction; Z95.5 Presence of coronary angioplasty implant and graft; Z87.891 Personal history of nicotine dependence

== ENCOUNTER → 2018-07-23 | Outpatient (REF) | payer MEDICARE, OTHER ==
[~2018-07-23] MED LIST changes: -NS 1,000 ML IV ONE
[2018-07-23 12:42] LABS: HEMATOCRIT 41.5 % (42.0-52.0); HEMOGLOBIN 13.1 g/dl (13.5-17.5); MEAN CORPUSCULAR HEMOGLOBIN 30.8 pg (27.0-33.0); MEAN CORPUSCULAR HGB CONC 31.6 g/dl (32.0-36.5); MEAN CORPUSCULAR VOLUME 97.6 fl (80.0-96.0); PLATELET COUNT, AUTOMATED 186 10^3/uL (150-450); RED BLOOD COUNT 4.25 10^6/uL (4.30-6.10); WHITE BLOOD COUNT 6.8 10^3/uL (4.0-10.0)
[2018-07-23 13:18] LABS: ALBUMIN 3.3 GM/DL (3.2-5.2); ALT/SGPT 20 U/L (12-78); BILIRUBIN,TOTAL 0.4 MG/DL (0.2-1.0); BLOOD UREA NITROGEN 22 MG/DL (7-18); CALCIUM LEVEL 8.2 MG/DL (8.8-10.2); CARBON DIOXIDE LEVEL 28 MEQ/L (21-32); CHLORIDE LEVEL 109 MEQ/L (98-107); CHOLESTEROL LEVEL 147 MG/DL (<200); CHOLESTEROL RISK RATIO 3.418 (<5); GLOMERULAR FILTRATION RATE > 60.0 (>35); GLUCOSE, FASTING 95 MG/DL (70-100); HDL CHOLESTEROL 43 MG/DL (>40); LDL CHOLESTEROL 85 MG/DL (<100); NON-HDL-C 104 MG/DL; POTASSIUM SERUM 4.7 MEQ/L (3.5-5.1); SODIUM LEVEL 142 MEQ/L (136-145); TOTAL PROTEIN 6.8 GM/DL (6.4-8.2); TRIGLYCERIDES LEVEL 96 MG/DL (<150)
== END ==
LOC: M LABDRAW1 11:21
PROVIDERS: ATTEND Physician Assistant
DX: I25.10 Atherosclerotic heart disease of native coronary artery without angina pectoris (principal); E78.00 Pure hypercholesterolemia, unspecified; I50.32 Chronic diastolic (congestive) heart failure

== ENCOUNTER → 2019-01-02 | Outpatient (CLI) | payer MEDICARE, BC, OTHER ==
[~2019-01-02] MED LIST changes: +ASPI-1 PO; -ASPI325T PO; -BENA10TA6 PO; +BENA10TA9 PO; +HYDR-3715 PO; -NORCOTAB PO
--- NOTE | 2019-01-02 17:40 | REP ---
Carotid MRA angiography without contrast: History: Vertigo. No comparison carotid imaging. Technique: Noncontrast MR angiography is acquired. Maximum intensity projection images are generated. MR angiographic findings: There is some motion artifact at the level of the proximal internal carotid arteries. There is no evidence of high-grade proximal internal carotid artery stenosis on either side. The vertebral arteries are bilaterally patent and codominant. Impression: Mild carotid bulb plaquing bilaterally. No significant stenosis seen on either side. Electronically Signed by Kam Orozco MD 01/02/2019 07:26 P
--- NOTE | 2019-01-03 08:12 | REP ---
MRI of the brain without contrast Indication: Vertigo. Comparison: None Technique: MRI of the brain was performed without contrast utilizing sagittal T1 FLAIR, and axial DWI, T1, T2, GRE, and FLAIR imaging. Findings: There is patient motion artifact which degrades image quality and decreases the sensitivity for the detection of small lesions. Within this limitation, there is and 18 x 13 mm T1 and T2 hypointense lesion along the left frontal convexity with mild mass effect on the underlying cortex. There susceptibility on gradient imaging, suggestive of a calcified lesion such as a meningioma. This lesion does not restrict diffusion. There is no restricted diffusion to suggest acute ischemia or infarction. There are scattered T2 hyperintensities within the periventricular subcortical white matter which are nonspecific but suggestive of mild microvascular ischemic disease. The ventricles and sulci are symmetric. There is no midline shift or basal cistern effacement. The visualized flow voids are preserved. The upper mattaponi ocular lenses are surgically absent. There is mild mucosal thickening of the ethmoid air cells, maxillary sinuses and right maxillary sinus. There is a mucous retention cyst or polyp within the left maxillary sinus anteriorly. There is T2 hypointense material within the dependent portion of the left maxillary sinus, likely representing desiccated secretions. The mastoid air cells are clear. Impression: No acute ischemia or infarction. Mild white matter changes which are nonspecific but suggestive of microvascular scan disease. 18 x 13 mm extra-axial lesion along the left frontal convexity, likely calcified, such as a meningioma. Partial opacification of the paranasal sinuses with T2 hypointense material within the left maxillary sinus, likely desiccated secretions or fungal colonization. Electronically Signed by Jazmyn Jacobs MD 01/03/2019 08:04 A
--- NOTE | 2019-01-03 08:19 | REP ---
MRA of the brain without contrast Indication: Vertigo. Comparison: None Technique: MR angiogram of the brain was performed without contrast. MIP images of the cerebral vessels were provided including tumble and spin MIP reconstructions. Findings: There is antegrade flow within the distal ICAs, proximal ACAs and MCAs as well as the distal vertebral arteries, basilar artery and proximal child attendant. There is no evidence of cerebrovascular occlusion or aneurysmal formation. There is no significant stenosis. Impression: Normal MRA of the brain without contrast. Electronically Signed by Jazmyn Jacobs MD 01/03/2019 08:11 A
== END ==
LOC: M RAD 15:12
PROVIDERS: ATTEND Family Medicine
DX: R42 Dizziness and giddiness (principal)

== ENCOUNTER → 2019-01-24 | Outpatient (REF) | payer MEDICARE, OTHER ==
[2019-01-24 19:27] LABS: BLOOD UREA NITROGEN 24 MG/DL (7-18); CARBON DIOXIDE LEVEL 32 MEQ/L (21-32); CHLORIDE LEVEL 108 MEQ/L (98-107); GLOMERULAR FILTRATION RATE > 60.0 (>35); GLUCOSE, FASTING 86 MG/DL (70-100); SODIUM LEVEL 143 MEQ/L (136-145)
== END ==
LOC: M LABDRAW1 13:02
PROVIDERS: ATTEND Physician Assistant
DX: I50.32 Chronic diastolic (congestive) heart failure (principal)

== ENCOUNTER 2019-02-20 09:32 | Emergency (ER) | payer MEDICARE, OTHER ==
[~2019-02-20] VITALS: Ht 170.2 cm; Wt 87.2 kg
[2019-02-20] MEDS ORDERED: TRIA25CR TOP (09:49)
[2019-02-20] MEDS ORDERED: ACETAMINOPHEN 325 MG TAB PO ONE (10:15)
[2019-02-20] MEDS ORDERED: ONDANSETRON 4MG/2ML VIAL (J2405) IV ONE (10:15)
--- NOTE | 2019-02-20 11:04 | REP ---
CT brain: 02/20/2019. Indication: Head trauma. Comparison: MRI brain dated 01/02/2019. Technique: Unenhanced axial CT images of the brain were obtained from skull base to vertex. Findings: There is no acute intracranial hemorrhage, acute cortical infarction, significant mass effect or hydrocephalous. There is no evidence of calvarial fracture. Partially calcified extra-axial left frontal region mass anteriorly is unchanged most consistent with partially involuted meningioma. Age-related volume loss is present. Patchy areas of hypoattenuation scattered throughout the subcortical and periventricular white matter. Periosteal mucosal thickening within the visualized sinuses is noted most pronounced within the ethmoid air cells. Impression: There is no evidence of acute intracranial process. Age-related volume loss and chronic small vessel disease. Partially involuted left frontal region meningioma. Paranasal sinus mucosal disease. Electronically Signed by Pedro Lopez DO 02/20/2019 10:56 A
--- NOTE | 2019-02-20 11:13 | REP ---
Two-view chest: 02/20/2019. Indication: Fever. Cough. Comparison: 06/18/2018. Findings: Patchy airspace opacities are noted within the left lower lobe. No significant pleural fluid is present. There is no pneumothorax. Cardiac silhouette and mediastinum are unremarkable. The right lung is clear. Impression: Left-sided pneumonia without effusion. Electronically Signed by Pedro Lopez DO 02/20/2019 11:05 A
[2019-02-20 11:14] LABS: BASO % 0.2 % (0.0-1.0); EOS # 0.1 10^3/uL (0.0-0.5); EOS % 0.5 % (0.0-3.0); HEMATOCRIT 42.4 % (42.0-52.0); LYMPH # 0.4 10^3/uL (1.5-5.0); LYMPH % 3.3 % (24.0-44.0); MEAN CORPUSCULAR HEMOGLOBIN 31.4 pg (27.0-33.0); MEAN CORPUSCULAR VOLUME 95.1 fl (80.0-96.0); MONO % 7.3 % (0.0-5.0); NEUTROPHILS # 11.5 10^3/uL (1.5-8.5); NEUTROPHILS % 88.3 % (36.0-66.0); PLATELET COUNT, AUTOMATED 188 10^3/uL (150-450); RED BLOOD COUNT 4.46 10^6/uL (4.30-6.10); WHITE BLOOD COUNT 13.1 10^3/uL (4.0-10.0)
[2019-02-20 11:40] LABS: INFLUENZA A AMPLIFICATION NEGATIVE (NEGATIVE); INFLUENZA B AMPLIFICATION NEGATIVE (NEGATIVE)
[2019-02-20 11:45] LABS: ALBUMIN 3.6 GM/DL (3.2-5.2); BILIRUBIN,DIRECT 0.2 MG/DL (0.0-0.2); TOTAL PROTEIN 7.1 GM/DL (6.4-8.2)
--- NOTE | 2019-02-20 11:57 | REP ---
Pelvis/right hip: Three views. History: Pain after fall. Findings: AP view of the pelvis shows an intact bony pelvic ring. There is a prominent pattern of tendon insertion site spurring consistent with enthesopathy. There is periarticular soft-tissue calcification about the left hip. Osteoarthritic spurring is also noted at the hips bilaterally. No hip or pelvic fracture is seen. Impression: No fracture noted. Enthesopathy changes. Electronically Signed by Kam Orozco MD 02/20/2019 01:48 P
[2019-02-20] MEDS ORDERED: LEVA750T7 PO (13:05)
[2019-02-20] MEDS ORDERED: ONDA4TAB6 PO (13:11)
[2019-02-20 13:24] VITALS: BP 112/50
== END 2019-02-20 13:27 | disposition home or self-care (01) ==
LOC: M ED 09:32
DX: J18.9 Pneumonia, unspecified organism (principal); S76.011A Strain of muscle, fascia and tendon of right hip, initial encounter; W17.4XXA Fall from dock, initial encounter; Y92.89 Other specified places as the place of occurrence of the external cause; I10 Essential (primary) hypertension; J44.9 Chronic obstructive pulmonary disease, unspecified; E03.9 Hypothyroidism, unspecified; I25.2 Old myocardial infarction; Z95.5 Presence of coronary angioplasty implant and graft; Z87.891 Personal history of nicotine dependence
CPT/HCPCS: 70450; 71046; 73502; 80047; 80076; 83605; 83690; 85025; 87040; 87502; 96374; 99284; J2405

== ENCOUNTER 2019-06-18 10:31 | Inpatient (IN) | payer MEDICARE, BC, OTHER ==
[~2019-06-18] VITALS: Ht 170.2 cm; Wt 89.2 kg
[~2019-06-18 10:31] MED LIST changes: -BENA10TA9 PO; +BENA1TAB24 PO; +LEVA750T7 PO; +ONDA4TAB6 PO; +TRIA25CR TOP
[2019-06-18] MEDS ORDERED: ACETAMINOPHEN TAB 650MG DOSE (2X325MG) PO ONE (11:00)
--- NOTE | 2019-06-18 11:24 | REP ---
Clinical: Cough and dyspnea . Comparison: 02/20/2019 . Findings: The mediastinum and cardiac silhouette are stable and within normal limits for portable technique. The lung jarrell demonstrate chronic-appearing changes without acute consolidation, effusion, or pneumothorax. Skeletal structures are intact. Impression: No acute cardiopulmonary process appreciated. Electronically Signed by Ignacio Mantilla MD 06/18/2019 11:16 A
[2019-06-18 11:51] LABS: BASO # 0.1 10^3/uL (0.0-0.2); BASO % 0.4 % (0.0-1.0); EOS # 0.1 10^3/uL (0.0-0.5); EOS % 0.6 % (0.0-3.0); HEMATOCRIT 44.5 % (42.0-52.0); HEMOGLOBIN 14.3 g/dl (13.5-17.5); LYMPH # 0.7 10^3/uL (1.5-5.0); LYMPH % 4.8 % (24.0-44.0); MEAN CORPUSCULAR HEMOGLOBIN 30.8 pg (27.0-33.0); MEAN CORPUSCULAR HGB CONC 32.1 g/dl (32.0-36.5); MEAN CORPUSCULAR VOLUME 95.9 fl (80.0-96.0); MONO # 0.8 10^3/uL (0.0-0.8); NEUTROPHILS # 11.9 10^3/uL (1.5-8.5); NEUTROPHILS % 87.8 % (36.0-66.0); PLATELET COUNT, AUTOMATED 171 10^3/uL (150-450); RED BLOOD COUNT 4.64 10^6/uL (4.30-6.10); WHITE BLOOD COUNT 13.6 10^3/uL (4.0-10.0)
[2019-06-18 12:12] LABS: INFLUENZA A AMPLIFICATION NEGATIVE (NEGATIVE); INFLUENZA B AMPLIFICATION NEGATIVE (NEGATIVE)
[2019-06-18 12:16] LABS: ALBUMIN 3.9 GM/DL (3.2-5.2); BILIRUBIN,DIRECT 0.3 MG/DL (0.0-0.2); BILIRUBIN,TOTAL 1.1 MG/DL (0.2-1.0); CK-MB VALUE MASS 1.9 NG/ML (<3.6); CREATININE FOR GFR 1.31 MG/DL (0.70-1.30); GLOMERULAR FILTRATION RATE 55.9 (>35); MB/CK RELATIVE INDEX 1.47 (< OR =4); POTASSIUM SERUM 4.6 MEQ/L (3.5-5.1); THYROID STIMULATING HORMONE 1.29 uIU/ML (0.358-3.740); TOTAL PROTEIN 7.4 GM/DL (6.4-8.2); TROPONIN I 0.14 NG/ML (< 0.10)
[2019-06-18] MEDS ORDERED: IBUPROFEN 400 MG TAB PO ONE (14:00)
[2019-06-18] MEDS ORDERED: NS 500 ML IV ONE (14:00)
--- NOTE | 2019-06-18 14:21 | REP ---
Clinical: Cough and fever. Technique: Axial noncontrast images from the thoracic inlet to the upper abdomen with coronal and sagittal re-formations. Comparison: None. Findings: Advanced COPD/emphysematous changes appreciated along with significant subpleural blebs primarily involving the periphery of the bilateral upper lobes. There is a focal area of infiltrate involving the anterior left upper lobe consistent with acute pneumonia. Scattered underlying bronchiectasis and scarring noted. No effusion. No pneumothorax. No significant adenopathy. Atherosclerotic changes to the thoracic aorta and coronary arteries noted without aortic aneurysm or cardiomegaly. No pericardial effusion. Musculoskeletal structures demonstrate age-related changes. Impression: 1. Small area of acute pneumonia involving the anterior left upper lobe. 2. Advanced COPD and emphysematous changes with significant peripheral subpleural blebs. Electronically Signed by Ignacio Mantilla MD 06/18/2019 02:13 P
[2019-06-18] MEDS ORDERED: cefTRIAXone SOD 2 GM in D5W MINI-BAG PLUS 50 ML IV ONE (14:30)
[2019-06-18] MEDS ORDERED: ONDA4TAB6 PO (14:58)
[2019-06-18] MEDS ORDERED: TAMS1CAP17 PO (14:58)
[2019-06-18] MEDS ORDERED: INCR1INH INH (14:58)
[2019-06-18] MEDS ORDERED: MECL-86 PO (14:58)
[2019-06-18] MEDS ORDERED: ACET25TA12 PO (14:58)
[2019-06-18] MEDS ORDERED: CALC600T66 PO (14:58)
[2019-06-18] MEDS ORDERED: BREO1INH3 INH (14:58)
[2019-06-18] MEDS ORDERED: NASA1SPR (14:59)
[2019-06-18] MEDS ORDERED: AZITHROMYCIN INJ 500 MG, VIAL MATE ADAPTER 1 EACH in D5W 250 ML IV ONE (15:00)
[2019-06-18] MEDS ORDERED: ONDANSETRON 4 MG ORAL DISINTEGRATING TAB (Q0162 PER 1MG) PO PRN (15:45)
[2019-06-18] MEDS ORDERED: ACETAMINOPHEN TAB 650MG DOSE (2X325MG) PO PRN (15:45)
[2019-06-18] MEDS ORDERED: MAALOX 30 ML SUSP *UDC PO PRN (15:45)
[2019-06-18] MEDS ORDERED: DOCUSATE SODIUM 100 MG CAP PO PRN (15:45)
[2019-06-18] MEDS ORDERED: IPRATROPIUM 0.5MG/ALBUTEROL 2.5MG INH SOL UD 3ML (DUONEB)(J7620) INH PRN (15:45)
[2019-06-18] MEDS ORDERED: MECLIZINE 25 MG TABLET PO PRN (15:45)
[2019-06-18 16:48] VITALS: BP 122/55
--- NOTE | 2019-06-18 17:12 | HPE ---
DATE OF ADMISSION: 06/18/2019 CHIEF COMPLAINT: Rigors and fevers. HISTORY OF PRESENT ILLNESS: Mr. Squires is an 79-year-old gentleman who has a past medical history notable for COPD. He quit smoking approximately 23 years ago. He does not use any oxygen. He also has underlying coronary artery disease status-post four stents placed in 1997. He has had no issues since then. He denies having any chest discomfort or exertional dyspnea. Patient presents to the ER today stating that he does not feel well when he woke today. He felt rigors, chills and felt quite warm. He has had a little bit of a nasal congestion. He denies having any sick contacts and he lives by himself. He was brought to the emergency room by his family where he was noted to have a temperature of 102 degrees, heart rate of 108, white blood count elevated at 13.6. He was not found to be hypoxic. His influenza screen was negative. A preliminary chest x-ray done in the ER department failed to show any evidence of any acute pathology in the lungs. A subsequent CT scan of his chest showed that he had a left upper lobe infiltrate consistent with pneumonia along with bronchiectasis and COPD with emphysematous. Due to his curve 65 score he was recommended for admission to the hospital for short period of IV antibiotics before transitioning to orals. When I went in to see him he is resting comfortably. He is not complaining of any hypoxia. He is not needing any supplemental oxygen. ALLERGIES: No known drug allergies. HOME MEDICATIONS: Tylenol P.M. 1 tablet at bedtime as needed for sleep. Vitamin C 500 mg daily, full dose aspirin at bedtime. Benazepril 10 mg at bedtime. Calcium carbonate vitamin D3 1 tab daily. Cetirizine 10 mg at bedtime, finasteride 5 mg daily, Breo Ellipta 1 puff daily, furosemide 20 mg daily, Synthroid 125 mcg by mouth daily, meclizine 25 mg daily as needed, multivitamin 1 capsule daily, Zofran 4 mg every 6 hours as needed, pravastatin 20 mg at bedtime, Flomax 0.4 mg daily, Nasocort 1 spray at bedtime and Incrus Ellipta 1 puff daily. PAST MEDICAL HISTORY: Notable for MRI in 1997 status-post percutaneous intervention via left heart cath with placement of four stents to the RIGHT CORONARY ARTERY with a history of hypertension, hyperlipidemia, BPH, hyperthyroidism, history of acute cholecystitis status post cholecystectomy in the past, has a history of chronic diastolic congestive heart failure. SOCIAL HISTORY: Patient is an ex-smoker who quit 22 years ago. Does not have any other bad habits that include alcohol or illicit drugs. He is a . He lost his in 2001 to cancer. His daughter is the surrogate medical decision maker. Patient is a DO NOT RESUSCITATE from my conversation with them. SURGICAL HISTORY: Notable for left total knee arthroplasty, cholecystectomy, left rotator cuff repair, bilateral carpal tunnel release and left hernia repair. REVIEW OF SYSTEMS: Otherwise negative with the exception of what is mentioned in the HPI. The patient denies having any recent travel overseas or having contact with any sick individuals to his recollection. PHYSICAL EXAM: Patient's temperature is 102, heart rate 108, respirations 18, blood pressure 129/68, Oxygen sat 90% on room air. GENERAL: The patient is alert and oriented times three. Appears to be in no acute distress. His breathing is not labored nor is his exemplifying any respiratory distress. His head is atraumatic. His pupils are reactive to light. Tympanic membranes are visualized bilaterally. No evidence of acute infection. Oropharynx is clear. Neck is supple. No jugular venous distension. No palpable masses. No lymphadenopathy. No thyroid gland tenderness or enlargement. Lung sounds are appreciated bilaterally without any rales, wheezes or rhonchi. Breath sounds are distant consistent with his history of COPD. Heart is S1, S2 no audible murmurs or gallops. Abdomen is protuberant and nontender and nondistended with active bowel sounds. Extremities without any significant cyanosis, clubbing, or edema. Neuro, cranial nerves II through XII are grossly intact. No focal neurologic deficits. LABS: Sodium 139, potassium 4.6, chloride 104, bicarbonate 26, anion gap 9, BUN 26, creatinine 1.31, lactic acid 12.7, direct bilirubin 1.1, AST 17, ALT 23, alkaline phos 59, initial troponin markers 0.14, TSH 1.29, white count 13.6, hemoglobin 14.3, hematocrit 44.5, platelet count 171, influenza A and B were negative. Chest x-ray showed no acute disease. CT scan of the chest showed left upper lobe infiltrate consistent with pneumonia, bronchiectasis as well as COPD. IMPRESSION: 1. Community acquired pneumonia. 2. Chronic COPD. 3. Chronic coronary artery disease. 4. Hypertension. 5. Hyperlipidemia. 6. Hypothyroidism. PLAN: The patient will be admitted to an observation status for IV antibiotics for 1-2 days. If his fever and white count have resolved and he is not exhibiting any hypoxia with ambulation he can be discharged home and transitioned to oral antibiotics. The patient will be continued on his home medications without any specific changes other than substitution of benazepril for lisinopril. Patient to be placed on Lovenox for DVT prophylaxis and he will be a not resuscitate.
--- NOTE | 2019-06-18 20:03 | ECGEPIP ---
[facility] - ED Test Date: 2019-06-18 Pat Name: JOSE SCALES Department: Room: - Gender: Male Package Sealer: ARIELLA : 1940 Requested By: JUANI Fountain Order Number: [id number] Reading MD: Racquel Au Measurements Intervals [place] Rate: 97 P: 37 WI: 187 QRS: 60 QRSD: 93 T: 23 QT: 294 QTc: 375 Interpretive Statements SINUS RHYTHM INCOMPLETE RIGHT BUNDLE BRANCH BLOCK INCREASED RATE 08/21/16 Electronically Signed on 06-18-2019 20:03:08 EST by Racquel Au
[2019-06-18] MEDS: PRAVASTATIN 20 MG TAB PO SCH (20:32)
[2019-06-18] MEDS: CETIRIZINE (ZyrTEC) 10 MG TAB PO SCH (20:32)
[2019-06-18] MEDS: ASPIRIN 325 MG TAB PO SCH (20:32)
[2019-06-18] MEDS: ENOXAPARIN 40 MG/0.4 ML SYRINGE (J1650) SC SCH (20:32)
[2019-06-18] MEDS: lisinopriL 10 MG TAB PO SCH (20:38)
[2019-06-18 22:00] VITALS: BP 103/54
[2019-06-19] MEDS: LEVOTHYROXINE 125MCG TABLET (0.125MG) PO SCH (05:29)
[2019-06-19 05:56] LABS: HEMATOCRIT 37.6 % (42.0-52.0); HEMOGLOBIN 12.5 g/dl (13.5-17.5); MEAN CORPUSCULAR HEMOGLOBIN 31.7 pg (27.0-33.0); MEAN CORPUSCULAR HGB CONC 33.2 g/dl (32.0-36.5); MEAN CORPUSCULAR VOLUME 95.4 fl (80.0-96.0); PLATELET COUNT, AUTOMATED 163 10^3/uL (150-450); RED BLOOD COUNT 3.94 10^6/uL (4.30-6.10); WHITE BLOOD COUNT 15.1 10^3/uL (4.0-10.0)
[2019-06-19 06:00] VITALS: BP 127/73
[2019-06-19 06:12] LABS: CALCIUM LEVEL 8.5 MG/DL (8.8-10.2); CREATININE FOR GFR 1.33 MG/DL (0.70-1.30); GLOMERULAR FILTRATION RATE 54.9 (>35); POTASSIUM SERUM 4.4 MEQ/L (3.5-5.1)
[2019-06-19] MEDS: MULTIVITAMINS/MINERALS THERAP 1 TAB PO SCH (08:12)
[2019-06-19] MEDS: FINASTERIDE 5 MG TAB PO SCH (08:12)
[2019-06-19] MEDS: FUROSEMIDE 20 MG TAB PO SCH (08:12)
[2019-06-19] MEDS: TAMSULOSIN 0.4 MG CAP PO SCH (08:12)
[2019-06-19 14:00] VITALS: BP 127/63
[2019-06-19] MEDS ORDERED: cefTRIAXone SOD 1 GM in D5W MINI-BAG PLUS 50 ML IV SCH (16:00)
[2019-06-19] MEDS ORDERED: AZITHROMYCIN INJ 500 MG, VIAL MATE ADAPTER 1 EACH in D5W 250 ML IV SCH (17:00)
--- NOTE | 2019-06-19 18:52 | IPNPDOC ---
Subjective Date Seen The patient was seen on 06/19/19. Subjective Chief Complaint/HPI c/o sob this morning. Feels ok, but not 100% better Objective Physical Examination General Exam: Positive: Alert, Cooperative, No Acute Distress Eye Exam: Positive: PERRLA ENT Exam: Positive: Mucous membr. moist/pink Neck Exam: Positive: Supple Chest Exam: Positive: Wheezing (mild) Heart Exam: Positive: Rate Normal Telemetry: Positive: No significant arrhythmia Abdomen Exam: Positive: Normal bowel sounds Extremity Exam: Negative: Clubbing, Cyanosis, Edema Skin Exam: Negative: Rash Neuro Exam: Positive: Normal Gait, Normal Speech Psych Exam: Positive: Mental status NL, Mood NL Assessment /Plan Assessment # CAP # Chronic COPD - change to inpatient, likely needs more than 2 midnight stay with increased WBC on labs this morning - continue IV zithromax + rocephin - duonebs prn - home inhalers are not formulary, so not ordered # HTN - controlled with furosemide + lisinopril Family updated at bedside. Plan/VTE VTE Prophylaxis Ordered?: Yes VTE Exclusion Mechanical Proph: N/A:VTE Prophy Ordered VTE Exclusion Pharmacological: N/A:VTE Prophy Ordered VS, I&O, 24H, Fishbone Vital Signs/I&O Vital Signs Date Time Temp Pulse Resp B/P (MAP) Pulse Ox O2 Delivery O2 Flow Rate FiO2 06/19/19 14:00 98.9 75 17 127/63 (84) 93 Room Air I&O- Last 24 Hours up to 6 AM 06/19/19 06:00 Intake Total 870 ml Output Total 1100 ml Balance -230 ml Laboratory Data 24H LABS Laboratory Tests 2 06/18/19 19:26: Troponin I 0.13H 06/19/19 05:31: Nucleated Red Blood Cells % (auto) 0.0, Anion Gap 4L, Glomerular Filtration Rate 54.9, Calcium Level 8.5L CBC/BMP Laboratory Tests 06/19/19 05:31 Microbiology Microbiology 06/18/19 Respiratory Virus Panel (PCR) ([facility]) - Final, Complete 06/18/19 Gram Stain - Final, Resulted 06/18/19 Sputum Culture, Resulted Pending 06/18/19 Blood Culture - Preliminary, Resulted No growth after 24 hours . All specim... 06/18/19 Blood Culture - Preliminary, Resulted No growth after 24 hours . All specim... DAMIEN,AYDIN L MD Jun 19, 2019 18:50
[2019-06-19] MEDS: ASPIRIN 325 MG TAB PO SCH (20:31)
[2019-06-19] MEDS: ENOXAPARIN 40 MG/0.4 ML SYRINGE (J1650) SC SCH (20:31)
[2019-06-19] MEDS: PRAVASTATIN 20 MG TAB PO SCH (20:31)
[2019-06-19 20:32] VITALS: BP 134/70
[2019-06-19] MEDS: lisinopriL 10 MG TAB PO SCH (20:32)
[2019-06-19] MEDS: CETIRIZINE (ZyrTEC) 10 MG TAB PO SCH (20:32)
[2019-06-19 22:00] VITALS: BP 134/70
[2019-06-20 06:00] VITALS: BP 135/69
[2019-06-20] MEDS: LEVOTHYROXINE 125MCG TABLET (0.125MG) PO SCH (06:23)
[2019-06-20 08:42] LABS: HEMATOCRIT 40.9 % (42.0-52.0); MEAN CORPUSCULAR HGB CONC 31.8 g/dl (32.0-36.5); MEAN CORPUSCULAR VOLUME 97.4 fl (80.0-96.0); PLATELET COUNT, AUTOMATED 165 10^3/uL (150-450); WHITE BLOOD COUNT 9.5 10^3/uL (4.0-10.0)
[2019-06-20] MEDS: TAMSULOSIN 0.4 MG CAP PO SCH (09:04)
[2019-06-20] MEDS: FINASTERIDE 5 MG TAB PO SCH (09:04)
[2019-06-20] MEDS: MULTIVITAMINS/MINERALS THERAP 1 TAB PO SCH (09:05)
[2019-06-20] MEDS: FUROSEMIDE 20 MG TAB PO SCH (09:05)
[2019-06-20] MEDS ORDERED: CEFU50TA PO (10:36)
--- NOTE | 2019-06-20 10:40 | IPNPDOC ---
Subjective Date Seen The patient was seen on 06/20/19. Subjective Chief Complaint/HPI Feels better, denies any pleurisy. Objective Physical Examination General Exam: Positive: Alert, Cooperative, No Acute Distress Eye Exam: Positive: PERRLA ENT Exam: Positive: Mucous membr. moist/pink Neck Exam: Positive: Supple Chest Exam: Positive: Clear to auscultation, Normal air movement Heart Exam: Positive: Rate Normal Telemetry: Positive: No significant arrhythmia Abdomen Exam: Positive: Normal bowel sounds Extremity Exam: Negative: Clubbing, Cyanosis, Edema Skin Exam: Negative: Rash Neuro Exam: Positive: Normal Gait, Normal Speech Psych Exam: Positive: Mental status NL, Mood NL Assessment /Plan Assessment # CAP # Chronic COPD - cefuroxime 500 mg bid x 5 days - september discharge home - f/u with pcp in 1 week # HTN - controlled with furosemide + lisinopril Plan/VTE VTE Prophylaxis Ordered?: Yes VTE Exclusion Mechanical Proph: N/A:VTE Prophy Ordered VTE Exclusion Pharmacological: N/A:VTE Prophy Ordered VS, I&O, 24H, Fishbone Vital Signs/I&O Vital Signs Date Time Temp Pulse Resp B/P (MAP) Pulse Ox O2 Delivery O2 Flow Rate FiO2 06/20/19 06:00 98.6 73 16 135/69 (91) 95 Room Air I&O- Last 24 Hours up to 6 AM 06/20/19 06:00 Intake Total 1760 ml Output Total 1800 ml Balance -40 ml Laboratory Data 24H LABS Laboratory Tests 2 06/20/19 08:31: Nucleated Red Blood Cells % (auto) 0.0 CBC/BMP Laboratory Tests 06/20/19 08:31 Microbiology Microbiology 06/18/19 Respiratory Virus Panel (PCR) ([facility]) - Final, Complete 06/18/19 Gram Stain - Final, Complete 06/18/19 Sputum Culture - Final, Complete 06/18/19 Blood Culture - Preliminary, Resulted No growth after 24 hours . All specim... 06/18/19 Blood Culture - Preliminary, Resulted No growth after 24 hours . All specim... AYDIN QUEZADA MD Jun 20, 2019 10:40
== END 2019-06-20 11:47 | disposition home or self-care (01) | DRG 194 ==
LOC: M ED 10:31 → M ED INP 10:32 → ENRESERV 15:58 → M MSPAV 16:45 → OBSVTOIN 06-19 10:04
PROVIDERS: ADMIT Internal Medicine; ATTEND Internal Medicine
DX: J18.9 Pneumonia, unspecified organism (principal); I50.32 Chronic diastolic (congestive) heart failure; J44.9 Chronic obstructive pulmonary disease, unspecified; I11.0 Hypertensive heart disease with heart failure; I25.10 Atherosclerotic heart disease of native coronary artery without angina pectoris; E03.9 Hypothyroidism, unspecified; E78.5 Hyperlipidemia, unspecified; Z95.2 Presence of prosthetic heart valve; Z87.891 Personal history of nicotine dependence; Z79.82 Long term (current) use of aspirin; Z79.899 Other long term (current) drug therapy; N40.0 Benign prostatic hyperplasia without lower urinary tract symptoms

== ENCOUNTER → 2019-06-30 | Outpatient (CLI) | payer MEDICARE, BC, OTHER ==
[~2019-06-30] MED LIST changes: +ACET25TA12 PO; +BREO1INH3 INH; +CALC600T66 PO; +CEFU50TA PO; +INCR1INH INH; +MECL-86 PO; +TAMS1CAP17 PO
[2019-06-30 11:04] LABS: BLOOD UREA NITROGEN 22 MG/DL (7-18); CALCIUM LEVEL 8.5 MG/DL (8.8-10.2); CARBON DIOXIDE LEVEL 32 MEQ/L (21-32); CHLORIDE LEVEL 107 MEQ/L (98-107); CREATININE FOR GFR 1.13 MG/DL (0.70-1.30); FREE T4 0.99 NG/DL (0.76-1.46); GLOMERULAR FILTRATION RATE > 60.0 (>35); GLUCOSE, FASTING 98 MG/DL (70-100); POTASSIUM SERUM 4.8 MEQ/L (3.5-5.1); SODIUM LEVEL 141 MEQ/L (136-145)
[2019-07-01 09:53] LABS: TOTAL 25(OH) VITAMIN D 46.2 NG/ML (30.0-100.0)
== END ==
LOC: M LAB 09:52
PROVIDERS: ATTEND Nurse Practitioner Family
DX: E03.9 Hypothyroidism, unspecified (principal); I11.0 Hypertensive heart disease with heart failure; E55.9 Vitamin D deficiency, unspecified; I25.10 Atherosclerotic heart disease of native coronary artery without angina pectoris; I50.32 Chronic diastolic (congestive) heart failure; E78.00 Pure hypercholesterolemia, unspecified

== ENCOUNTER → 2019-06-30 | Outpatient (CLI) | payer MEDICARE, BC, OTHER ==
[2019-06-30 10:40] LABS: HEMATOCRIT 44.2 % (42.0-52.0); HEMOGLOBIN 14.4 g/dl (13.5-17.5); MEAN CORPUSCULAR HEMOGLOBIN 31.5 pg (27.0-33.0); MEAN CORPUSCULAR HGB CONC 32.6 g/dl (32.0-36.5); MEAN CORPUSCULAR VOLUME 96.7 fl (80.0-96.0); PLATELET COUNT, AUTOMATED 217 10^3/uL (150-450); RED BLOOD COUNT 4.57 10^6/uL (4.30-6.10); WHITE BLOOD COUNT 6.8 10^3/uL (4.0-10.0)
[2019-06-30 10:58] LABS: ALBUMIN 3.7 GM/DL (3.2-5.2); ALT/SGPT 21 U/L (12-78); BILIRUBIN,TOTAL 0.6 MG/DL (0.2-1.0); BLOOD UREA NITROGEN 21 MG/DL (7-18); CALCIUM LEVEL 9.2 MG/DL (8.8-10.2); CARBON DIOXIDE LEVEL 31 MEQ/L (21-32); CHLORIDE LEVEL 107 MEQ/L (98-107); CHOLESTEROL LEVEL 180 MG/DL (<200); CHOLESTEROL RISK RATIO 3.272 (<5); CREATININE FOR GFR 1.13 MG/DL (0.70-1.30); GLOMERULAR FILTRATION RATE > 60.0 (>35); GLUCOSE, FASTING 99 MG/DL (70-100); HDL CHOLESTEROL 55 MG/DL (>40); LDL CHOLESTEROL 101 MG/DL (<100); NON-HDL-C 125 MG/DL; POTASSIUM SERUM 4.7 MEQ/L (3.5-5.1); SODIUM LEVEL 142 MEQ/L (136-145); TOTAL PROTEIN 7.5 GM/DL (6.4-8.2); TRIGLYCERIDES LEVEL 121 MG/DL (<150)
== END ==
LOC: M LAB 09:56
PROVIDERS: ATTEND Physician Assistant
DX: I25.10 Atherosclerotic heart disease of native coronary artery without angina pectoris (principal); I50.32 Chronic diastolic (congestive) heart failure; E78.00 Pure hypercholesterolemia, unspecified

== ENCOUNTER → 2019-07-02 | Outpatient (CLI) | payer MEDICARE, BC, OTHER ==
--- NOTE | 2019-07-02 14:14 | REP ---
CHEST, TWO VIEWS: Two views of the chest were performed and compare to priors studies, most recently 06/18/2019. No acute infiltrate is seen. Heart is normal in size. There is calcification and tortuosity of the thoracic aorta. Mediastinal silhouette is unchanged. There are mild degenerative changes of the spine. IMPRESSION: No evidence of acute infiltrate. Electronically Signed by Hasmukh Dejesus MD 07/02/2019 08:20 P
== END ==
LOC: M RAD 11:02
PROVIDERS: ATTEND Nurse Practitioner Family
DX: J18.9 Pneumonia, unspecified organism (principal)

== ENCOUNTER → 2019-07-23 | Outpatient (CLI) | payer MEDICARE, BC, OTHER ==
[2019-07-23 07:11] LABS: HEMATOCRIT 43.2 % (42.0-52.0); HEMOGLOBIN 14.1 g/dl (13.5-17.5); MEAN CORPUSCULAR HEMOGLOBIN 31.4 pg (27.0-33.0); MEAN CORPUSCULAR HGB CONC 32.6 g/dl (32.0-36.5); MEAN CORPUSCULAR VOLUME 96.2 fl (80.0-96.0); PLATELET COUNT, AUTOMATED 166 10^3/uL (150-450); RED BLOOD COUNT 4.49 10^6/uL (4.30-6.10)
[2019-07-23 07:34] LABS: ALBUMIN 3.5 GM/DL (3.2-5.2); BILIRUBIN,TOTAL 0.7 MG/DL (0.2-1.0); CALCIUM LEVEL 8.8 MG/DL (8.8-10.2); CHOLESTEROL RISK RATIO 2.709 (<5); CREATININE FOR GFR 1.26 MG/DL (0.70-1.30); GLOMERULAR FILTRATION RATE 58.5 (>35); POTASSIUM SERUM 4.4 MEQ/L (3.5-5.1)
== END ==
LOC: M LAB 06:39
PROVIDERS: ATTEND Physician Assistant
DX: I25.10 Atherosclerotic heart disease of native coronary artery without angina pectoris (principal); I50.32 Chronic diastolic (congestive) heart failure; E78.00 Pure hypercholesterolemia, unspecified

== ENCOUNTER → 2019-12-17 | Outpatient (CLI) | payer MEDICARE, BC, OTHER ==
[~2019-12-17] MED LIST changes: -ASPI81TA85 PO; +ASPI81TA86 PO
[2020-01-31 17:55] LABS: BLOOD UREA NITROGEN 25 MG/DL (7-18); CALCIUM LEVEL 8.9 MG/DL (8.8-10.2); CARBON DIOXIDE LEVEL 27 MEQ/L (21-32); CHLORIDE LEVEL 109 MEQ/L (98-107); CREATININE FOR GFR 1.23 MG/DL (0.70-1.30); GLOMERULAR FILTRATION RATE > 60.0 (>35); GLUCOSE, FASTING 89 MG/DL (70-100); POTASSIUM SERUM 4.6 MEQ/L (3.5-5.1); SODIUM LEVEL 140 MEQ/L (136-145)
== END ==
LOC: M LAB 06:09
PROVIDERS: ATTEND Physician Assistant
DX: I50.32 Chronic diastolic (congestive) heart failure (principal)

== ENCOUNTER → 2019-12-30 | Outpatient (CLI) | payer MEDICARE, BC, OTHER ==
[2019-12-30 07:58] LABS: CALCIUM LEVEL 8.9 MG/DL (8.8-10.2); CREATININE FOR GFR 1.29 MG/DL (0.70-1.30); GLOMERULAR FILTRATION RATE 56.9 (>35); POTASSIUM SERUM 4.4 MEQ/L (3.5-5.1)
== END ==
LOC: M LAB 06:17
PROVIDERS: ATTEND Physician Assistant
DX: I50.32 Chronic diastolic (congestive) heart failure (principal)

== ENCOUNTER → 2020-04-08 | Outpatient (CLI) | payer MEDICARE, BC, OTHER ==
[~2020-04-08] MED LIST changes: +ALBU8.5H; +PANT40TA29
--- NOTE | 2020-04-08 09:20 | REPVR ---
PROCEDURE INFORMATION: Exam: MR Lumbar Spine Without Contrast. Exam date and time: 04/08/2020 8:26 AM Age: 79 years old Clinical indication: Low back pain; Prior surgery; Surgery date: 6+ months; Surgery type: Fusion; Additional info: Lbp w/ lower ext numbness TECHNIQUE: Imaging protocol: Multiplanar magnetic resonance images of the lumbar spine without intravenous contrast. COMPARISON: No relevant prior studies available. FINDINGS: The numbering scheme assumes the presence of a sacralized L5 body. Level should be confirmed prior to any planned surgical intervention. Vertebrae: There is 3 mm of grade 1 retrolisthesis of L4 with respect to L5. Normal vertebral body alignment is otherwise preserved. Vertebral body heights are within normal limits. There is mild intervertebral disc space loss at L3/4 and moderate intervertebral disc space loss at L4/5, with associated endplate changes. Spinal cord: The conus medullaris terminates at L1. The patient has a congenitally narrowed spinal canal. L1-L2: No significant disc disease. There is mild facet hypertrophy. There is mild left neural foraminal narrowing. L2-L3: There is diffuse disc bulging. There is moderate facet and ligamentous hypertrophy. There is critical canal stenosis, with near effacement of the canal. There is miyp-[id number]-puysivoi bilateral neural foraminal narrowing. L3-L4: There is diffuse disc bulging. There is moderate facet hypertrophy. There is severe canal stenosis, with a residual diameter of 4 mm. There is moderate bilateral neural foraminal narrowing. L4-L5: There is diffuse disc bulging/uncovering related to listhesis. There is moderate facet and ligamentous hypertrophy. There is moderate to severe canal stenosis. There is moderate to severe bilateral neural foraminal narrowing. L5-S1: There is a sacralized L5 body with a rudimentary disc. The spinal canal and neural foramina are patent. Soft tissues: Unremarkable. Vasculature: The abdominal aorta is ectatic, measuring up to 2.8 cm in diameter. The right common iliac artery is dilated, measuring up to 1.9 cm in diameter. The left common iliac artery measures up to 1.5 cm in diameter. 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 Changes contribute to multilevel acquired canal stenosis, most pronounced at L2/3, where it is critical. There is multilevel neural foraminal narrowing, most pronounced at L4/5, where it is moderate to severe.. Electronically signed by: Emily Birmingham On 04/08/2020 09:20:44 AM
== END ==
LOC: M RAD 06:33
PROVIDERS: ATTEND Family Medicine
DX: M51.26 Other intervertebral disc displacement, lumbar region (principal); G89.29 Other chronic pain; R20.0 Anesthesia of skin; M47.816 Spondylosis without myelopathy or radiculopathy, lumbar region; M51.36 Other intervertebral disc degeneration, lumbar region

== ENCOUNTER 2020-04-12 10:01 | Emergency (ER) | payer MEDICARE, BC, OTHER ==
[~2020-04-12] VITALS: Ht 170.2 cm; Wt 91.0 kg
[~2020-04-12 10:01] MED LIST changes: -ALBU8.5H; -PANT40TA29
[2020-04-12 10:03] VITALS: BP 132/63
[2020-04-12] MEDS ORDERED: ALBU8.5H (11:08)
[2020-04-12] MEDS ORDERED: PANT40TA29 (11:08)
[2020-04-12] MEDS ORDERED: FLUORESCEIN OPHTH 1 MG STRIP OS ONE (12:45)
== END 2020-04-12 12:45 | disposition home or self-care (01) ==
LOC: M ED 10:01
DX: H53.8 Other visual disturbances (principal); I50.9 Heart failure, unspecified; J44.9 Chronic obstructive pulmonary disease, unspecified; E07.9 Disorder of thyroid, unspecified; K21.9 Gastro-esophageal reflux disease without esophagitis; I25.10 Atherosclerotic heart disease of native coronary artery without angina pectoris; M54.30 Sciatica, unspecified side; Z79.899 Other long term (current) drug therapy; Z79.82 Long term (current) use of aspirin; Z79.890 Hormone replacement therapy

== ENCOUNTER → 2020-06-30 | Outpatient (CLI) | payer MEDICARE, BC, OTHER ==
[~2020-06-30] MED LIST changes: +ALBU8.5H; +PANT40TA29
[2020-06-30 06:40] LABS: HEMATOCRIT 43.8 % (42.0-52.0); HEMOGLOBIN 13.7 g/dl (13.5-17.5); MEAN CORPUSCULAR HEMOGLOBIN 30.4 pg (27.0-33.0); MEAN CORPUSCULAR HGB CONC 31.3 g/dl (32.0-36.5); MEAN CORPUSCULAR VOLUME 97.3 fl (80.0-96.0); PLATELET COUNT, AUTOMATED 185 10^3/uL (150-450); WHITE BLOOD COUNT 6.5 10^3/uL (4.0-10.0)
[2020-06-30 07:08] LABS: ALBUMIN 3.6 GM/DL (3.2-5.2); BILIRUBIN,TOTAL 0.4 MG/DL (0.2-1.0); CALCIUM LEVEL 8.6 MG/DL (8.8-10.2); CHOLESTEROL RISK RATIO 3.234 (<5); CREATININE FOR GFR 1.47 MG/DL (0.70-1.30); GLOMERULAR FILTRATION RATE 48.8 (>35); POTASSIUM SERUM 4.7 MEQ/L (3.5-5.1)
== END ==
LOC: M LAB 06:05
PROVIDERS: ATTEND Physician Assistant
DX: I25.10 Atherosclerotic heart disease of native coronary artery without angina pectoris (principal); I50.32 Chronic diastolic (congestive) heart failure; E78.00 Pure hypercholesterolemia, unspecified

== ENCOUNTER → 2020-06-30 | Outpatient (CLI) | payer MEDICARE, BC, OTHER ==
[2020-06-30 07:19] LABS: ALBUMIN 3.5 GM/DL (3.2-5.2); BILIRUBIN,TOTAL 0.5 MG/DL (0.2-1.0); CALCIUM LEVEL 8.8 MG/DL (8.8-10.2); CHOLESTEROL RISK RATIO 3.266 (<5); CREATININE FOR GFR 1.46 MG/DL (0.70-1.30); GLOMERULAR FILTRATION RATE 49.2 (>35); POTASSIUM SERUM 4.8 MEQ/L (3.5-5.1); THYROID STIMULATING HORMONE 3.47 uIU/ML (0.358-3.740)
[2020-06-30 10:07] LABS: TOTAL 25(OH) VITAMIN D 44.3 NG/ML (30.0-100.0)
== END ==
LOC: M LAB 06:03
PROVIDERS: ATTEND Nurse Practitioner Family
DX: I10 Essential (primary) hypertension (principal); E03.9 Hypothyroidism, unspecified; I25.10 Atherosclerotic heart disease of native coronary artery without angina pectoris; E55.9 Vitamin D deficiency, unspecified; Z79.899 Other long term (current) drug therapy

== ENCOUNTER → 2020-07-29 | Outpatient (REF) | payer MEDICARE, OTHER ==
[2020-07-29 10:50] LABS: MALB URINE SIEMENS 42.4 MG/L; MAU/CREAT RATIO 36.2 MCG/MG (0.0-30.0)
== END ==
LOC: M SFHCPLAZ 08:43
PROVIDERS: ATTEND Nurse Practitioner Family
DX: I10 Essential (primary) hypertension (principal); Z12.5 Encounter for screening for malignant neoplasm of prostate
CPT/HCPCS: 36415; 82043; G0103; G0463

== ENCOUNTER → 2021-01-11 | Outpatient (CLI) | payer MEDICARE, BC, OTHER ==
[2021-01-11 10:36] LABS: CALCIUM LEVEL 8.7 MG/DL (8.8-10.2); CREATININE FOR GFR 1.61 MG/DL (0.70-1.30); POTASSIUM SERUM 4.5 MEQ/L (3.5-5.1)
== END ==
LOC: M LAB 09:42
PROVIDERS: ATTEND Physician Assistant
DX: I50.32 Chronic diastolic (congestive) heart failure (principal)

== ENCOUNTER → 2021-01-21 | Outpatient (CLI) | payer MEDICARE, BC, OTHER ==
[~2021-01-21] MED LIST changes: +VITA30004 PO
[2021-01-21 19:51] LABS: CALCIUM LEVEL 8.9 MG/DL (8.8-10.2); CREATININE FOR GFR 1.4 MG/DL (0.70-1.30); FREE T4 0.83 NG/DL (0.76-1.46); GLOMERULAR FILTRATION RATE 51.7 (>35); MAU/CREAT RATIO 80.8 MCG/MG (0.0-30.0); POTASSIUM SERUM 5.3 MEQ/L (3.5-5.1); THYROID STIMULATING HORMONE 3.7 uIU/ML (0.358-3.740)
== END ==
LOC: M PLALAB 13:54
PROVIDERS: ATTEND Nurse Practitioner Family
DX: N17.9 Acute kidney failure, unspecified (principal); Z79.51 Long term (current) use of inhaled steroids; Z79.899 Other long term (current) drug therapy
CPT/HCPCS: 36415; 80048; 82043; 82306; 84439; 84443; 93005; G0463

== ENCOUNTER 2021-02-02 15:18 | Emergency (ER) | payer MEDICARE, BC, OTHER ==
[~2021-02-02] VITALS: Ht 170.2 cm; Wt 90.9 kg
[~2021-02-02 15:18] MED LIST changes: -VITA30004 PO
[2021-02-02] MEDS ORDERED: VITA30004 PO (16:00)
--- NOTE | 2021-02-02 20:57 | REPVR ---
PROCEDURE INFORMATION: Exam: XR Chest Exam date and time: 02/02/2021 8:04 PM Age: 80 years old Clinical indication: Other: SOB TECHNIQUE: Imaging protocol: XR of the chest. Views: 1 view. COMPARISON: CR Chest, 2 view PA, Lat 07/02/2019 11:14 AM FINDINGS: Lungs: Unremarkable. No consolidation. Pleural spaces: Unremarkable. No pleural effusion. No pneumothorax. Heart/Mediastinum: Unremarkable. No cardiomegaly. Bones/joints: Unremarkable. IMPRESSION: No acute findings. Electronically signed by: Can Mccoy On 02/02/2021 20:57:13 PM
[2021-02-02 21:17] LABS: RSV AMPLIFICATION NEGATIVE (NEGATIVE)
[2021-02-02 21:52] VITALS: BP 133/63
--- NOTE | 2021-02-04 07:36 | ECGEPIP ---
[facility] - ED Test Date: 2021-02-02 Pat Name: JOSE SCALES Department: Room: - Gender: Male Filer Finish: ADRIENNE : 1940 Requested By: CLIFF RAMIREZ PA-C Order Number: [id number] Reading MD: Racquel Au Measurements Intervals [place] Rate: 76 P: 55 MN: 222 QRS: 34 QRSD: 98 T: 32 QT: 352 QTc: 396 Interpretive Statements Sinus rhythm with 1st degree AV block with occasional premature ventricular complexes Incomplete right bundle branch block Anterior infarct , age undetermined NSTTW abnormalities Electronically Signed on 02-04-2021 7:35:40 EDT by Racquel Au
== END 2021-02-02 21:57 | disposition home or self-care (01) ==
LOC: M ED 15:18
DX: J06.9 Acute upper respiratory infection, unspecified (principal); I11.0 Hypertensive heart disease with heart failure; I50.9 Heart failure, unspecified; J44.9 Chronic obstructive pulmonary disease, unspecified; E78.5 Hyperlipidemia, unspecified; E03.9 Hypothyroidism, unspecified; I25.2 Old myocardial infarction; Z79.899 Other long term (current) drug therapy

== ENCOUNTER → 2021-05-04 | Outpatient (CLI) | payer MEDICARE, BC, OTHER ==
[~2021-05-04] MED LIST changes: +VITA30004 PO
== END ==
LOC: M WHC 07:19
PROVIDERS: ATTEND Nurse Practitioner Adult Health
DX: I72.2 Aneurysm of renal artery (principal); I72.3 Aneurysm of iliac artery

== ENCOUNTER → 2021-07-16 | Outpatient (CLI) | payer MEDICARE, BC, OTHER ==
[2021-07-16 14:47] LABS: MEAN CORPUSCULAR HEMOGLOBIN 31.9 pg (27.0-33.0); MEAN CORPUSCULAR HGB CONC 32.6 g/dl (32.0-36.5); MEAN CORPUSCULAR VOLUME 97.9 fl (80.0-96.0); PLATELET COUNT, AUTOMATED 179 10^3/uL (150-450); RED BLOOD COUNT 4.39 10^6/uL (4.30-6.10); WHITE BLOOD COUNT 7.7 10^3/uL (4.0-10.0)
[2021-07-16 15:39] LABS: CALCIUM LEVEL 9.3 MG/DL (8.8-10.2); CREATININE FOR GFR 1.34 MG/DL (0.70-1.30); GLOMERULAR FILTRATION RATE 54.2 (>35); MAGNESIUM LEVEL 2.3 MG/DL (1.8-2.4); POTASSIUM SERUM 5.9 MEQ/L (3.5-5.1); THYROID STIMULATING HORMONE 1.2 uIU/ML (0.358-3.740)
== END ==
LOC: M PLALAB 10:17
PROVIDERS: ATTEND Physician Assistant
DX: I48.3 Typical atrial flutter (principal); Z79.899 Other long term (current) drug therapy

== ENCOUNTER 2021-08-25 20:00 | Emergency (ER) | payer MEDICARE, BC, OTHER ==
[~2021-08-25] VITALS: Ht 170.2 cm; Wt 90.9 kg
[2021-08-25] MEDS ORDERED: ACETAMINOPHEN 325 MG TAB PO ONE (21:55)
[2021-08-25] MEDS ORDERED: BENZONATATE 100MG CAPSULE PO ONE (21:55)
[2021-08-25 23:04] LABS: BASO % 0.4 % (0.0-1.0); EOS # 0.2 10^3/uL (0.0-0.5); EOS % 2.5 % (0.0-3.0); HEMATOCRIT 40.2 % (42.0-52.0); HEMOGLOBIN 13.4 g/dl (13.5-17.5); LYMPH # 1.5 10^3/uL (1.5-5.0); MEAN CORPUSCULAR HEMOGLOBIN 32.2 pg (27.0-33.0); MEAN CORPUSCULAR HGB CONC 33.3 g/dl (32.0-36.5); MEAN CORPUSCULAR VOLUME 96.6 fl (80.0-96.0); MONO # 1.1 10^3/uL (0.0-0.8); NEUTROPHILS # 3.8 10^3/uL (1.5-8.5); NEUTROPHILS % 56.8 % (36.0-66.0); PLATELET COUNT, AUTOMATED 164 10^3/uL (150-450); RED BLOOD COUNT 4.16 10^6/uL (4.30-6.10); WHITE BLOOD COUNT 6.7 10^3/uL (4.0-10.0)
[2021-08-25 23:33] LABS: CALCIUM LEVEL 8.7 MG/DL (8.8-10.2); CREATININE FOR GFR 1.4 MG/DL (0.70-1.30); GLOMERULAR FILTRATION RATE 51.5 (>35); POTASSIUM SERUM 4.4 MEQ/L (3.5-5.1)
[2021-08-26 00:13] LABS: CK-MB VALUE MASS 2.2 NG/ML (<3.6); MB/CK RELATIVE INDEX 1.2 (< OR =4)
[2021-08-26 01:52] LABS: CK-MB VALUE MASS 2.5 NG/ML (<3.6); MB/CK RELATIVE INDEX 1.6 (< OR =4)
[2021-08-26 02:45] VITALS: BP 129/63
== END 2021-08-26 03:10 | disposition home or self-care (01) ==
LOC: M ED 20:00
DX: R05.9 Cough, unspecified (principal); R50.9 Fever, unspecified; U07.1 COVID-19; I11.0 Hypertensive heart disease with heart failure; I50.9 Heart failure, unspecified; J44.9 Chronic obstructive pulmonary disease, unspecified; E78.5 Hyperlipidemia, unspecified; E07.9 Disorder of thyroid, unspecified; I48.92 Unspecified atrial flutter; I25.2 Old myocardial infarction; Z79.899 Other long term (current) drug therapy; Z79.890 Hormone replacement therapy; Z79.82 Long term (current) use of aspirin; F17.210 Nicotine dependence, cigarettes, uncomplicated

== ENCOUNTER 2021-08-26 02:40 | Outpatient (CLI) | payer MEDICARE, BC, OTHER ==
[~2021-08-26] VITALS: Ht 170.2 cm; Wt 90.1 kg
[2021-08-26] MEDS ORDERED: ALBUTEROL SULFATE 2.5 MG/0.5 ML INH NEB SOLN INH PRN (02:50)
[2021-08-26] MEDS ORDERED: ALBUTEROL 90 MCG/ACT 8GM HFA INHALER INH PRN (02:50)
[2021-08-26] MEDS ORDERED: ACETAMINOPHEN TAB 650MG DOSE (2X325MG) PO PRN (02:50)
[2021-08-26] MEDS ORDERED: NS 1,000 ML IV SCH (02:50)
[2021-08-26] MEDS ORDERED: diphenhydrAMINE 50MG/ML VIAL (J1200) IV PRN (02:50)
[2021-08-26] MEDS ORDERED: EPINEPHrine INJ 1 MG/ML 1ML AMP IM PRN (02:50)
[2021-08-26] MEDS ORDERED: methylPREDNISolone 125MG 2ML VIAL IV PRN (02:50)
[2021-08-26 03:21] VITALS: BP 137/68
[2021-08-26 03:41] VITALS: BP 137/69
[2021-08-26] MEDS ORDERED: BEBTELOVIMAB 175MG 2ML VIAL (EUA) IV ONE (04:00)
[2021-08-26 04:39] VITALS: BP 138/77
== END 2021-08-26 04:42 | disposition home or self-care (01) ==
LOC: M OPCLI4 02:40
PROVIDERS: ATTEND Emergency Medicine
DX: U07.1 COVID-19 (principal)

== ENCOUNTER → 2021-12-07 | Outpatient (CLI) | payer MEDICARE, BC, OTHER ==
[2021-12-07 10:17] LABS: HEMATOCRIT 41.4 % (42.0-52.0); HEMOGLOBIN 13.5 g/dl (13.5-17.5); MEAN CORPUSCULAR HEMOGLOBIN 31.4 pg (27.0-33.0); MEAN CORPUSCULAR HGB CONC 32.6 g/dl (32.0-36.5); MEAN CORPUSCULAR VOLUME 96.3 fl (80.0-96.0); PLATELET COUNT, AUTOMATED 216 10^3/uL (150-450); WHITE BLOOD COUNT 6.2 10^3/uL (4.0-10.0)
[2021-12-07 11:20] LABS: ALBUMIN 3.7 GM/DL (3.2-5.2); BILIRUBIN,TOTAL 0.9 MG/DL (0.2-1.0); CALCIUM LEVEL 9.3 MG/DL (8.8-10.2); CHOLESTEROL RISK RATIO 3.181 (<5); CREATININE FOR GFR 1.41 MG/DL (0.70-1.30); GLOMERULAR FILTRATION RATE 51.1 (>35); MAGNESIUM LEVEL 2.4 MG/DL (1.8-2.4); POTASSIUM SERUM 4.9 MEQ/L (3.5-5.1); THYROID STIMULATING HORMONE 1.29 uIU/ML (0.358-3.740)
[2021-12-07 11:43] LABS: TOTAL 25(OH) VITAMIN D 52.1 NG/ML (30.0-100.0)
[2021-12-07 16:23] LABS: HEMOGLOBIN A1c 5.7 %
== END ==
LOC: M PLALAB 08:18
PROVIDERS: ATTEND Nurse Practitioner Adult Health
DX: I50.32 Chronic diastolic (congestive) heart failure (principal); E55.9 Vitamin D deficiency, unspecified; E78.00 Pure hypercholesterolemia, unspecified; E03.9 Hypothyroidism, unspecified; I11.0 Hypertensive heart disease with heart failure

== ENCOUNTER → 2022-09-05 | Outpatient (CLI) | payer MEDICARE, BC, OTHER ==
[2022-09-05 13:58] LABS: HEMOGLOBIN A1c 5.7 % (4.0-6.0)
== END ==
LOC: M PLALAB 09:17
PROVIDERS: ATTEND Nurse Practitioner Adult Health
DX: Z09 Encounter for follow-up examination after completed treatment for conditions other than malignant neoplasm (principal); Z79.899 Other long term (current) drug therapy

== ENCOUNTER → 2022-10-24 | Outpatient (CLI) | payer MEDICARE, BC, OTHER ==
[2022-10-24 07:27] LABS: ALBUMIN 3.4 G/DL (3.2-5.2); BILIRUBIN,TOTAL 0.6 MG/DL (0.3-1.2); CALCIUM LEVEL 8.9 MG/DL (8.3-10.6); CHOLESTEROL RISK RATIO 3.59 (<5); CREATININE FOR GFR 1.26 MG/DL (0.70-1.30); HDL CHOLESTEROL 42.3 MG/DL (>40); LDL CHOLESTEROL 83.9 MG/DL (<100); MAGNESIUM LEVEL 2.2 MG/DL (1.8-2.4); NON-HDL-C 109.7 MG/DL; POTASSIUM SERUM 4.1 MMOL/L (3.5-5.1); TOTAL PROTEIN 6.6 G/DL (5.7-8.2)
[2022-10-24 07:28] LABS: THYROID STIMULATING HORMONE 2.043 uIU/ML (0.55-4.78); TOTAL 25(OH) VITAMIN D 52.8 NG/ML (20.0-100.0)
== END ==
LOC: M LAB 06:11
PROVIDERS: ATTEND Nurse Practitioner Adult Health
DX: I50.32 Chronic diastolic (congestive) heart failure (principal); E78.00 Pure hypercholesterolemia, unspecified; E03.9 Hypothyroidism, unspecified; E55.9 Vitamin D deficiency, unspecified; I11.0 Hypertensive heart disease with heart failure

== ENCOUNTER 2023-02-05 20:11 | Emergency (ER) | payer MEDICARE, BC, OTHER ==
[~2023-02-05] VITALS: Ht 170.2 cm; Wt 86.8 kg
[2023-02-05 20:11] VITALS: TEMP 99
[2023-02-05] MEDS ORDERED: TETRACAINE 0.5% OPHTH SOLN 4ML OU ONE (21:15)
[2023-02-05] MEDS ORDERED: ISOVUE-370 76% 100ML VIAL As Ordered ONE (21:23)
[2023-02-05 21:26] LABS: BASO # 0.1 10^3/uL (0.0-0.2); BASO % 0.7 % (0.0-1.0); EOS # 0.4 10^3/uL (0.0-0.5); EOS % 5.2 % (0.0-3.0); HEMATOCRIT 39.1 % (42.0-52.0); HEMOGLOBIN 12.8 g/dl (13.5-17.5); LYMPH # 2.1 10^3/uL (1.5-5.0); LYMPH % 24.3 % (24.0-44.0); MEAN CORPUSCULAR HEMOGLOBIN 31.7 pg (27.0-33.0); MEAN CORPUSCULAR HGB CONC 32.7 g/dl (32.0-36.5); MEAN CORPUSCULAR VOLUME 96.8 fl (80.0-96.0); MONO # 0.9 10^3/uL (0.0-0.8); NEUTROPHILS # 4.9 10^3/uL (1.5-8.5); NEUTROPHILS % 58.6 % (36.0-66.0); PLATELET COUNT, AUTOMATED 208 10^3/uL (150-450); RED BLOOD COUNT 4.04 10^6/uL (4.30-6.10); WHITE BLOOD COUNT 8.4 10^3/uL (4.0-10.0)
[2023-02-05 21:41] LABS: INR 0.98; PROTHROMBIN TIME 12.7 SECONDS (12.5-14.5)
[2023-02-05 21:42] LABS: PARTIAL THROMBOPLASTIN TIME 29.2 SECONDS (24.8-34.2)
[2023-02-05 21:45] LABS: LIPASE 28 U/L (12-53)
[2023-02-05 21:47] LABS: CK-MB VALUE MASS 1.8 NG/ML (<3.6); ERYTHROCYTE SEDIMENTATION RATE 40 mm/hr (0-20)
[2023-02-05 21:48] LABS: ALBUMIN 3.2 G/DL (3.2-5.2); ALKALINE PHOSPHATASE 70 U/L (46-116); ALT/SGPT 23 U/L (7.0-40); AST/SGOT 20 U/L (<34); BILIRUBIN,DIRECT < 0.1 MG/DL (<0.4); BILIRUBIN,TOTAL 0.3 MG/DL (0.3-1.2); TOTAL PROTEIN 6.6 G/DL (5.7-8.2)
[2023-02-05 21:51] LABS: FREE T4 0.92 NG/DL (0.89-1.76)
[2023-02-05 21:52] LABS: THYROID STIMULATING HORMONE 9.162 uIU/ML (0.55-4.78)
[2023-02-05 21:57] LABS: CPK CREATINE PHOSPHOKINASE 142 U/L (46-171); MB/CK RELATIVE INDEX 1.26 (< OR =4)
[2023-02-05 22:50] LABS: CK-MB VALUE MASS 1.7 NG/ML (<3.6); MB/CK RELATIVE INDEX 1.33 (< OR =4)
[2023-02-05 23:00] VITALS: BP 155/74
[2023-02-05 23:11] VITALS: O2SAT 96
== END 2023-02-05 23:30 | disposition home or self-care (01) ==
LOC: M ED 20:11
DX: H53.132 Sudden visual loss, left eye (principal); I65.09 Occlusion and stenosis of unspecified vertebral artery; Z79.82 Long term (current) use of aspirin; Z79.899 Other long term (current) drug therapy
CPT/HCPCS: 70450; 70496; 70498; 71045; 80047; 80076; 82550; 82553; 83690; 84439; 84443; 84484; 85025; 85610; 85652; 85730; 86140; 93005; 93041; 94760; 99285; Q9967

== ENCOUNTER → 2023-06-29 | Outpatient (CLI) | payer MEDICARE, BC, OTHER ==
[2023-06-29 16:00] LABS: CALCIUM LEVEL 9.5 MG/DL (8.3-10.6); CREATININE FOR GFR 1.23 MG/DL (0.70-1.30); GLOMERULAR FILTRATION RATE 59.5 (>35); POTASSIUM SERUM 4.9 MMOL/L (3.5-5.1)
== END ==
LOC: M PLALAB 09:31
PROVIDERS: ATTEND Family Medicine
DX: Z01.810 Encounter for preprocedural cardiovascular examination (principal); I50.32 Chronic diastolic (congestive) heart failure

== ENCOUNTER → 2023-08-30 | Outpatient (CLI) | payer MEDICARE, BC ==
[2023-08-30 12:10] LABS: HEMATOCRIT 38.2 % (42.0-52.0); HEMOGLOBIN 12.5 g/dl (13.5-17.5); MEAN CORPUSCULAR HEMOGLOBIN 32.4 pg (27.0-33.0); MEAN CORPUSCULAR HGB CONC 32.7 g/dl (32.0-36.5); PLATELET COUNT, AUTOMATED 189 10^3/uL (150-450); RED BLOOD COUNT 3.86 10^6/uL (4.30-6.10); WHITE BLOOD COUNT 6.2 10^3/uL (4.0-10.0)
[2023-08-30 12:40] LABS: ALBUMIN 3.6 G/DL (3.2-5.2); BILIRUBIN,TOTAL 0.8 MG/DL (0.3-1.2); CALCIUM LEVEL 9.4 MG/DL (8.3-10.6); CHOLESTEROL RISK RATIO 3.38 (<5); CREATININE FOR GFR 1.39 MG/DL (0.70-1.30); GLOMERULAR FILTRATION RATE 51.7 (>35); HDL CHOLESTEROL 38.1 MG/DL (>40); LDL CHOLESTEROL 71.5 MG/DL (<100); MAGNESIUM LEVEL 2.3 MG/DL (1.8-2.4); NON-HDL-C 90.9 MG/DL; POTASSIUM SERUM 4.9 MMOL/L (3.5-5.1); TOTAL PROTEIN 6.7 G/DL (5.7-8.2)
[2023-08-30 12:42] LABS: FREE T4 0.93 NG/DL (0.89-1.76); THYROID STIMULATING HORMONE 3.659 uIU/ML (0.55-4.78)
[2023-08-30 12:55] LABS: CREATININE, URINE 122.1 MG/DL; MAU/CREAT RATIO 21.2 MCG/MG (0.0-30.0)
== END ==
LOC: M PLALAB 08:39
PROVIDERS: ATTEND Nurse Practitioner Adult Health
DX: I50.32 Chronic diastolic (congestive) heart failure (principal); E03.9 Hypothyroidism, unspecified; E78.00 Pure hypercholesterolemia, unspecified; I11.0 Hypertensive heart disease with heart failure; E55.9 Vitamin D deficiency, unspecified

== ENCOUNTER → 2023-10-19 | Outpatient (CLI) | payer MEDICARE, BC ==
[~2023-10-19] MED LIST changes: +ASPI-226; +CLOP75TA2; +METO1TAB32; +ONDA-282 PO; -ONDA4TAB6 PO
[2023-10-19 17:42] LABS: APPEARANCE, URINE CLEAR (CLEAR); BACTERIA, URINE AUTO NEGATIVE (NEGATIVE); BILIRUBIN, URINE AUTO NEGATIVE (NEGATIVE); BLOOD, URINE BLOOD NEGATIVE (NEGATIVE); COLOR, URINE YELLOW (YELLOW); GLUCOSE, URINE (UA) AUTO NEGATIVE (NEGATIVE); KETONE, URINE AUTO NEGATIVE (NEGATIVE); LEUKOCYTE ESTERASE, URINE AUTO NEGATIVE (NEGATIVE); MUCUS, URINE SMALL (NEGATIVE); NITRITE, URINE AUTO NEGATIVE (NEGATIVE); PROTEIN, URINE AUTO NEGATIVE (NEGATIVE); RBC, URINE AUTO 0 /HPF (0-3); SPECIFIC GRAVITY URINE AUTO 1.012 (1.002-1.035); SQUAMOUS EPITHELIAL CELL UR AU 0 /HPF (0-6); UROBILINOGEN, URINE AUTO 0.2 mg/dL (0.0-2.0); WBC, URINE AUTO 0 /HPF (0-3)
[2023-10-19 17:43] LABS: BASO # 0.1 10^3/uL (0.0-0.2); BASO % 1.1 % (0.0-1.0); EOS # 0.4 10^3/uL (0.0-0.5); EOS % 6.8 % (0.0-3.0); HEMATOCRIT 40.6 % (42.0-52.0); HEMOGLOBIN 13.5 g/dl (13.5-17.5); LYMPH # 2.2 10^3/uL (1.5-5.0); LYMPH % 34.4 % (24.0-44.0); MEAN CORPUSCULAR HEMOGLOBIN 32.8 pg (27.0-33.0); MEAN CORPUSCULAR HGB CONC 33.3 g/dl (32.0-36.5); MEAN CORPUSCULAR VOLUME 98.5 fl (80.0-96.0); MONO # 0.6 10^3/uL (0.0-0.8); MONO % 9.5 % (2.0-8.0); PLATELET COUNT, AUTOMATED 199 10^3/uL (150-450); RED BLOOD COUNT 4.12 10^6/uL (4.30-6.10); WHITE BLOOD COUNT 6.3 10^3/uL (4.0-10.0)
[2023-10-19 18:18] LABS: ALBUMIN 3.7 G/DL (3.2-5.2); ALKALINE PHOSPHATASE 69 U/L (46-116); ALT/SGPT 14 U/L (7.0-40); AST/SGOT 13 U/L (<34); BILIRUBIN,TOTAL 0.5 MG/DL (0.3-1.2); BLOOD UREA NITROGEN 36 MG/DL (9-23); CALCIUM LEVEL 9.4 MG/DL (8.3-10.6); CARBON DIOXIDE LEVEL 28 MMOL/L (20-31); CHLORIDE LEVEL 106 MMOL/L (98-107); CREATININE FOR GFR 1.22 MG/DL (0.70-1.30); GLOMERULAR FILTRATION RATE > 60.0 (>35); GLUCOSE, FASTING 77 MG/DL (74-106); SODIUM LEVEL 138 MMOL/L (136-145); TOTAL PROTEIN 7.1 G/DL (5.7-8.2)
[2023-10-19 18:19] LABS: THYROID STIMULATING HORMONE 4.147 uIU/ML (0.55-4.78)
[2023-10-19 18:20] LABS: FREE T4 1.15 NG/DL (0.89-1.76)
== END ==
LOC: M LAB 16:28
PROVIDERS: ATTEND Physician Assistant Medical
DX: R42 Dizziness and giddiness (principal); E16.2 Hypoglycemia, unspecified; I48.0 Paroxysmal atrial fibrillation

== ENCOUNTER 2023-10-23 14:27 | Emergency (ER) | payer MEDICARE, BC ==
[~2023-10-23] VITALS: Ht 170.2 cm; Wt 83.5 kg
[~2023-10-23 14:27] MED LIST changes: -ASPI-226; -CLOP75TA2; -METO1TAB32
[2023-10-23] MEDS ORDERED: METO1TAB32 (14:42)
[2023-10-23] MEDS ORDERED: ASPI-226 (14:42)
[2023-10-23] MEDS ORDERED: CLOP75TA2 (15:13)
[2023-10-23 15:21] LABS: BASO # 0.1 10^3/uL (0.0-0.2); BASO % 1.1 % (0.0-1.0); EOS # 0.4 10^3/uL (0.0-0.5); EOS % 5.4 % (0.0-3.0); HEMATOCRIT 36.9 % (42.0-52.0); HEMOGLOBIN 12.4 g/dl (13.5-17.5); LYMPH % 30.4 % (24.0-44.0); MEAN CORPUSCULAR HEMOGLOBIN 32.8 pg (27.0-33.0); MEAN CORPUSCULAR HGB CONC 33.6 g/dl (32.0-36.5); MEAN CORPUSCULAR VOLUME 97.6 fl (80.0-96.0); MONO # 0.8 10^3/uL (0.0-0.8); MONO % 11.8 % (2.0-8.0); NEUTROPHILS # 3.4 10^3/uL (1.5-8.5); PLATELET COUNT, AUTOMATED 196 10^3/uL (150-450); RED BLOOD COUNT 3.78 10^6/uL (4.30-6.10); WHITE BLOOD COUNT 6.6 10^3/uL (4.0-10.0)
[2023-10-23 15:35] LABS: PARTIAL THROMBOPLASTIN TIME 28.1 SECONDS (24.8-34.2); PROTHROMBIN TIME 12.9 SECONDS (12.5-14.5)
[2023-10-23 15:42] LABS: CK-MB VALUE MASS 2.2 NG/ML (<3.6)
[2023-10-23 15:44] LABS: ALBUMIN 3.4 G/DL (3.2-5.2); BILIRUBIN,DIRECT 0.2 MG/DL (<0.4); BILIRUBIN,TOTAL 0.4 MG/DL (0.3-1.2); CALCIUM LEVEL 9.2 MG/DL (8.3-10.6); CREATININE FOR GFR 1.31 MG/DL (0.70-1.30); GLOMERULAR FILTRATION RATE 55.4 (>35); POTASSIUM SERUM 4.7 MMOL/L (3.5-5.1); TOTAL PROTEIN 6.5 G/DL (5.7-8.2)
[2023-10-23 15:45] LABS: FREE T4 1.1 NG/DL (0.89-1.76); THYROID STIMULATING HORMONE 2.258 uIU/ML (0.55-4.78)
[2023-10-23 15:57] LABS: MB/CK RELATIVE INDEX 1.94 (< OR =4)
[2023-10-23 17:04] LABS: CK-MB VALUE MASS 1.8 NG/ML (<3.6); MB/CK RELATIVE INDEX 1.83 (< OR =4)
[2023-10-23 18:30] VITALS: BP 138/66; O2SAT 95
[2023-10-23 18:50] VITALS: TEMP 97.8
== END 2023-10-23 19:10 | disposition home or self-care (01) ==
LOC: M ED 14:27
DX: R07.9 Chest pain, unspecified (principal); I25.119 Atherosclerotic heart disease of native coronary artery with unspecified angina pectoris; I50.22 Chronic systolic (congestive) heart failure; I25.2 Old myocardial infarction; I45.10 Unspecified right bundle-branch block; I44.0 Atrioventricular block, first degree; R00.1 Bradycardia, unspecified; J44.9 Chronic obstructive pulmonary disease, unspecified; E03.9 Hypothyroidism, unspecified; Z87.891 Personal history of nicotine dependence; Z79.51 Long term (current) use of inhaled steroids; Z79.1 Long term (current) use of non-steroidal anti-inflammatories (NSAID); Z79.810 Long term (current) use of selective estrogen receptor modulators (SERMs); Z79.899 Other long term (current) drug therapy

== ENCOUNTER → 2023-11-02 | Outpatient (CLI) | payer MEDICARE, BC ==
[~2023-11-02] MED LIST changes: +ASPI-226; +CLOP75TA2; +METO1TAB32
[2023-11-02 13:40] LABS: BASO # 0.1 10^3/uL (0.0-0.2); BASO % 1.2 % (0.0-1.0); EOS # 0.4 10^3/uL (0.0-0.5); EOS % 4.8 % (0.0-3.0); HEMATOCRIT 40.5 % (42.0-52.0); HEMOGLOBIN 13.1 g/dl (13.5-17.5); LYMPH # 1.8 10^3/uL (1.5-5.0); LYMPH % 23.7 % (24.0-44.0); MEAN CORPUSCULAR HEMOGLOBIN 32.2 pg (27.0-33.0); MEAN CORPUSCULAR HGB CONC 32.3 g/dl (32.0-36.5); MEAN CORPUSCULAR VOLUME 99.5 fl (80.0-96.0); MONO # 0.8 10^3/uL (0.0-0.8); MONO % 9.9 % (2.0-8.0); NEUTROPHILS # 4.7 10^3/uL (1.5-8.5); PLATELET COUNT, AUTOMATED 199 10^3/uL (150-450); RED BLOOD COUNT 4.07 10^6/uL (4.30-6.10); WHITE BLOOD COUNT 7.8 10^3/uL (4.0-10.0)
[2023-11-02 14:05] LABS: CK-MB VALUE MASS 1.8 NG/ML (<3.6)
[2023-11-02 14:08] LABS: MB/CK RELATIVE INDEX 1.81 (< OR =4)
[2023-11-02 14:10] LABS: CALCIUM LEVEL 9.6 MG/DL (8.3-10.6); CREATININE FOR GFR 1.33 MG/DL (0.70-1.30); GLOMERULAR FILTRATION RATE 54.4 (>35); MAGNESIUM LEVEL 2.3 MG/DL (1.8-2.4)
== END ==
LOC: M PLALAB 10:08
PROVIDERS: ATTEND Physician Assistant Medical
DX: R79.89 Other specified abnormal findings of blood chemistry (principal)

== ENCOUNTER → 2023-11-08 | Outpatient (CLI) | payer MEDICARE, BC | LOC: M PLALAB 10:50 | PROVIDERS: ATTEND Internal Medicine Hematology | DX: Z01.818 Encounter for other preprocedural examination (principal); Z79.899 Other long term (current) drug therapy; I50.32 Chronic diastolic (congestive) heart failure ==

== ENCOUNTER → 2024-02-27 | Outpatient (CLI) | payer MEDICARE, BC ==
[2024-02-27 14:55] LABS: FOLATE > 24.0 NG/ML (>5.4)
[2024-02-27 14:56] LABS: VITAMIN B12 LEVEL 411 PG/ML (211-911)
[2024-03-04 08:12] LABS: VITAMIN B1 LEVEL WHOLE BLOOD 152 nmol/L (78-185)
[2024-03-05 20:32] LABS: VITAMIN E(ALPHA TOCOPHEROL) 16.5 mg/L (5.7-19.9); VITAMIN E(GAMMA TOCOPHEROL) < 1.0 mg/L (<=4.3)
== END ==
LOC: M PLALAB 09:47
PROVIDERS: ATTEND Psychiatry & Neurology Neurology
DX: R41.3 Other amnesia (principal); E53.8 Deficiency of other specified B group vitamins; E56.0 Deficiency of vitamin E

== ENCOUNTER → 2024-02-27 | Outpatient (CLI) | payer MEDICARE, BC ==
[2024-02-27 14:14] LABS: HEMATOCRIT 41.3 % (42.0-52.0); HEMOGLOBIN 13.2 g/dl (13.5-17.5); MEAN CORPUSCULAR HEMOGLOBIN 31.8 pg (27.0-33.0); MEAN CORPUSCULAR VOLUME 99.5 fl (80.0-96.0); PLATELET COUNT, AUTOMATED 202 10^3/uL (150-450); RED BLOOD COUNT 4.15 10^6/uL (4.30-6.10); WHITE BLOOD COUNT 7.4 10^3/uL (4.0-10.0)
[2024-02-27 14:36] LABS: HEMOGLOBIN A1c 5.5 % (4.0-6.0)
[2024-02-27 14:59] LABS: ALBUMIN 3.8 G/DL (3.2-5.2); BILIRUBIN,TOTAL 0.9 MG/DL (0.3-1.2); CREATININE FOR GFR 1.3 MG/DL (0.70-1.30); FERRITIN 110.5 NG/ML (10.5-307.3); GLOMERULAR FILTRATION RATE 55.9 (>35); MAGNESIUM LEVEL 2.6 MG/DL (1.8-2.4); POTASSIUM SERUM 5.5 MMOL/L (3.5-5.1); THYROID STIMULATING HORMONE 2.347 uIU/ML (0.55-4.78); TOTAL PROTEIN 7.8 G/DL (5.7-8.2)
[2024-02-27 15:00] LABS: FREE T4 1.17 NG/DL (0.89-1.76)
== END ==
LOC: M PLALAB 09:45
PROVIDERS: ATTEND Nurse Practitioner Adult Health
DX: I50.32 Chronic diastolic (congestive) heart failure (principal); E55.9 Vitamin D deficiency, unspecified; E03.9 Hypothyroidism, unspecified

== ENCOUNTER → 2024-03-15 | Outpatient (CLI) | payer MEDICARE, BC ==
[2024-03-15 14:29] LABS: ALBUMIN 3.6 G/DL (3.2-5.2); BILIRUBIN,TOTAL 0.6 MG/DL (0.3-1.2); CALCIUM LEVEL 9.9 MG/DL (8.3-10.6); CREATININE FOR GFR 1.29 MG/DL (0.70-1.30); GLOMERULAR FILTRATION RATE 56.4 (>35); MAGNESIUM LEVEL 2.3 MG/DL (1.8-2.4); POTASSIUM SERUM 5.1 MMOL/L (3.5-5.1); TOTAL PROTEIN 7.1 G/DL (5.7-8.2)
== END ==
LOC: M PLALAB 09:36
PROVIDERS: ATTEND Nurse Practitioner Acute Care
DX: I10 Essential (primary) hypertension (principal)

== ENCOUNTER 2024-07-20 19:23 | Emergency (ER) | payer MEDICARE, BC ==
[~2024-07-20] VITALS: Ht 170.2 cm; Wt 81.8 kg
[~2024-07-20 19:23] MED LIST changes: -ADV250INH INH; +ADVA1AER9 INH
[2024-07-20 19:40] VITALS: TEMP 97.5
[2024-07-20 20:06] LABS: BASO # 0.1 10^3/uL (0.0-0.2); BASO % 0.9 % (0.0-1.0); EOS # 0.2 10^3/uL (0.0-0.5); HEMATOCRIT 35.2 % (42.0-52.0); HEMOGLOBIN 11.4 g/dl (13.5-17.5); LYMPH # 1.9 10^3/uL (1.5-5.0); LYMPH % 27.8 % (24.0-44.0); MEAN CORPUSCULAR HGB CONC 32.4 g/dl (32.0-36.5); MEAN CORPUSCULAR VOLUME 98.9 fl (80.0-96.0); MONO % 14.3 % (2.0-8.0); NEUTROPHILS # 3.6 10^3/uL (1.5-8.5); NEUTROPHILS % 53.7 % (36.0-66.0); PLATELET COUNT, AUTOMATED 163 10^3/uL (150-450); RED BLOOD COUNT 3.56 10^6/uL (4.30-6.10); WHITE BLOOD COUNT 6.7 10^3/uL (4.0-10.0)
[2024-07-20 20:24] LABS: INR 0.99; PROTHROMBIN TIME 13.4 SECONDS (12.5-14.5)
[2024-07-20] MEDS: ASPIRIN 81MG CHEW TABLET PO ONE (20:27)
[2024-07-20 20:46] LABS: ALBUMIN 3.3 G/DL (3.2-5.2); BILIRUBIN,DIRECT 0.2 MG/DL (<0.4); BILIRUBIN,TOTAL 0.5 MG/DL (0.3-1.2); CALCIUM LEVEL 8.6 MG/DL (8.3-10.6); CK-MB VALUE MASS 2.3 NG/ML (<3.6); CREATININE FOR GFR 1.38 MG/DL (0.70-1.30); MB/CK RELATIVE INDEX 1.66 (< OR =4); POTASSIUM SERUM 4.7 MMOL/L (3.5-5.1); TOTAL PROTEIN 6.9 G/DL (5.7-8.2)
[2024-07-20 21:15] LABS: PARTIAL THROMBOPLASTIN TIME 30.9 SECONDS (24.8-34.2)
[2024-07-20 21:41] LABS: CK-MB VALUE MASS 2.1 NG/ML (<3.6)
[2024-07-20 21:45] LABS: MB/CK RELATIVE INDEX 1.69 (< OR =4)
[2024-07-20] MEDS ORDERED: ISOVUE-370 76% 100ML VIAL As Ordered ONE (22:01)
[2024-07-20 23:39] LABS: CK-MB VALUE MASS 1.6 NG/ML (<3.6)
[2024-07-20 23:41] LABS: MB/CK RELATIVE INDEX 1.34 (< OR =4)
[2024-07-21 00:45] VITALS: BP 154/72; O2SAT 96
== END 2024-07-21 01:08 | disposition home or self-care (01) ==
LOC: M ED 19:23
DX: R07.9 Chest pain, unspecified (principal); R00.1 Bradycardia, unspecified; I44.0 Atrioventricular block, first degree; I25.119 Atherosclerotic heart disease of native coronary artery with unspecified angina pectoris; I50.22 Chronic systolic (congestive) heart failure; I25.2 Old myocardial infarction; K21.9 Gastro-esophageal reflux disease without esophagitis; E03.9 Hypothyroidism, unspecified; Z79.51 Long term (current) use of inhaled steroids; Z79.1 Long term (current) use of non-steroidal anti-inflammatories (NSAID); Z79.810 Long term (current) use of selective estrogen receptor modulators (SERMs); Z79.899 Other long term (current) drug therapy
CPT/HCPCS: 36415; 71045; 71275; 80048; 80076; 82550; 82553; 83690; 84484; 85025; 85610; 85730; 93005; 93041; 94760; 99285; Q9967

== ENCOUNTER 2024-09-02 21:02 | Emergency (ER) | payer MEDICARE, BC ==
[~2024-09-02] VITALS: Ht 167.6 cm; Wt 75.8 kg
[~2024-09-02 21:02] MED LIST changes: -FLOM0.4C39 PO; +TAMS-18 PO; -TRIA25CR TOP; +TRIA80CR15 TOP
[2024-09-02 21:12] VITALS: TEMP 96.8; O2SAT 52
== END 2024-09-02 23:18 | disposition expired ==
LOC: M ED 21:02
DX: I46.9 Cardiac arrest, cause unspecified (principal); I25.119 Atherosclerotic heart disease of native coronary artery with unspecified angina pectoris; I50.22 Chronic systolic (congestive) heart failure; K21.9 Gastro-esophageal reflux disease without esophagitis; I11.0 Hypertensive heart disease with heart failure; J44.9 Chronic obstructive pulmonary disease, unspecified; E03.9 Hypothyroidism, unspecified; N18.30 Chronic kidney disease, stage 3 unspecified; Z79.1 Long term (current) use of non-steroidal anti-inflammatories (NSAID); Z79.51 Long term (current) use of inhaled steroids; Z79.899 Other long term (current) drug therapy